=== PATIENT | female | born 1995 | race Caucasian/White ===

== ENCOUNTER 2023-04-15 13:02 | Outpatient (CLI) | payer MEDICAID, SELFPAY ==
--- NOTE | 2023-04-15 15:00 | W.PM.LAC.MC ---
Consult Note - Mom Date of Visit Date of visit: 04/15/23 [facility] consultant: Ivanna Flores Visit Code: Visit Patient's Information Phone number: [phone] : 1 Para: 1 Delivery Information Delivery type: Primary C/S; Labored (FTP) Weeks Gestation: 40.2 Gestational Age: AGA Weight: 3.374 kg Discharge Weight: 3.175 kg Baby's Information Baby's Age at Visit: 8 days Baby's Provider or Clinic: Dr. Singletary Jaundice: No Reason for Consult Reason for Consult: difficulty latching Past Experience Past Experience: No Current Frequency of Day Feedings: about every 2 hours Frequency of Night Feedings: about every 4 hours Both Breasts: Yes (mom attempts) Pumping Pumping: Yes (with every other feeding) Quantity Pumped: 2 - 5 oz/side at each attempt Supplementing EMB Supplement: Yes (baby is given about 2 oz of pumped milk every 2 - 4 hours) Formula Supplement: No Baby Elimination Number of Wet Diapers a Day: every feeding Number of BM a Day: every feeding Onsite Pre-Feed weight: 3.484 kg Assessments/Interventions Assessments/Interventions: Met with mom and this now 8 day old ex- term AGA baby. Mom received her care and delivered with Mary Anne Foster. She reports no difficulty during , but needed a C/S for decreased heart tones with contractions during labor. She also had a significant blood loss and needed two units PRBC's after delivery. She reports having difficulty nursing baby from the beginning, both with and without a nipple shield. Since D/C she's tried to nurse but states she ends up screaming at my breast so I give her a bottle. She reports baby has never had formula and is now taking about 2 oz EBM every 2 - 4 hours. Mom has been able to pump 2 - 5 oz/side and was pumping with almost every feeding but has now started pumping with every other feeding or as I need to. Breasts are large but WNL- symmetrical with rounded lower quadrants, intramammary distance < 1.5 inches. Nipples are large but everted and they don't flatten or retract on compression. There was a small fissure on each nipple but mom reported they were from nipple piercings and aren't painful. Baby has gained 56 grams/day since her last visit with PCP on 04/11/23 and is now 110 grams (3.6 oz) above BW at 8 DOL. Mom denies any caput/cephalohematoma at delivery and also reports baby has equal ROM when turning her head and moving her extremities. Her palate is WNL and there are no signs of an upper lip tie. She has a strong suck on a finger and the tongue comes over the lower gumline, but not by much. The tongue has good lateral movement. Per mom, baby's lower frenulum was clipped before D/C and appears to be healing well. Mom attempted to latch baby in the football hold to her left side and baby was almost immediately frustrated. No improvement with verbal coaching to hold her breast in a C shape or aim her nipple for baby's nose. Baby didn't seem to sense the nipple in her mouth, or if she did take a few suckles, she pushed off right afterwards and wouldn't maintain the latch. There was no improvement with a nipple shield, or after giving baby about 15 ml by bottle and then transferring her back to breast. After a 10 - 15 minute attempt, mom tried the right side with the same result. Mom was measured and a flange size suggested. Also showed her an exercise and a stretch she can try with baby to see if that helps her learn to extend her tongue a little further past the gum line. Plan: 1. Suggested mom try once/day. She could try about 30 minutes before a time when baby would usually eat, or when she's a little sleepy. Could also try to bait and switch her with a bottle. Mom was given a 24mm nipple shield to use as well. 2. Continue to supplement baby ALD, or at least every 3 - 4 hours. Handout given on average amounts babies take by bottle during their first month of life. 3. Suggested mom pump at least 6 times/24 hours for now. Reviewed the importance of keeping a good supply so there's a reward for baby when mom puts her to breast. 4. Suggested she try the exercise and stretch with daytime diaper changes. 5. Encouraged extra skin to skin time outside of feedings. 6. Also reviewed storage milk guidelines and handout given. 7. Will f/u with mom by phone on 04/29/23 and fax note to PCP.
== END 2023-04-15 13:03 | disposition home or self-care (01) ==
PROVIDERS: PCP Physician Assistant; Visit Provider Physician Assistant
DX: Z39.1 Encounter for care and examination of lactating mother (principal)
CPT/HCPCS: G0463

== ENCOUNTER 2024-12-25 05:31 | Inpatient (IN) | payer MEDICAID, SELFPAY ==
[2024-12-25] VITALS (54 sets, daily range): BP systolic 116–138; BP diastolic 70–88; PULSE 73–95; RESP 16–20; TEMP 36.4–36.8; O2SAT 95–100; BMI 37.1
[2024-12-25] MEDS: LACTATED RINGERS 1000 ML 1,000 ML 955 ML IV (05:50)
[2024-12-25 06:07] LABS: Hematocrit* 36.4 % (33.0-51.0); Hemoglobin* 12.1 gm/dL (12.0-16.0); Immature Granulocytes Abs Auto 0.20 K/uL (0.00-0.30); Immature Granulocytes Pct Auto 1.3 %; Lymphocytes Absolute Auto 2.40 K/uL (0.90-2.90); Mean Corpuscular HGB Conc 33 gm/dL (32-36); Mean Corpuscular Hemoglobin 29 pg (26-34); Mean Corpuscular Volume 88 fL (80-100); RDW Coefficient of Variation % 13.0 % (11.5-15.5); Red Blood Count* 4.13 m/uL (4.00-5.20); White Blood Count* 11.98 K/uL (4.50-11.00)
[2024-12-25 06:08] LABS: Slide Review Reflex No
[2024-12-25] MEDS: LACTATED RINGERS 1000 ML 1,000 ML 125 ML IV ×2 (07:01→11:15)
--- NOTE | 2024-12-25 07:30 | W.PM.H&PU ---
History & Physical Update History & Physical Update H&P Reviewed and patient assessed: No changes noted H&P Updates: Ms. Bocanegra is seen in pre-op prior to planned repeat and bilateral salpingectomy. No interval change to her health history or questions today. We again reviewed the risks, benefits and alternatives to the planned procedure. Written consent was re-signed. Patient again affirmed her desire to be surgically sterilized. She notes she would only decide not to do this if there were significant concerns at time of , reassured her of reactive NST this morning. Certainly, I will again verbally affirm her desire to proceed before starting salpingectomy. Type and screen on file, cross-matched for 2 units, [address] given history of hemorrhage. Plan perioperative Ancef. Post-procedure restrictions and expectations reviewed. Pre-op labs reviewed and are within normal limits.
--- NOTE | 2024-12-25 10:02 | P.OBPRC_ITS ---
Procedure Date of procedure: 12/25/24 Pre-op diagnosis: History of , history of PPH, unwanted fertility, tobacco use disorder, ADHD Post-op diagnosis: same Procedure Done: Global Will [facility] bill your pro fee for this procedure?: Yes Blood Loss Measurement Type: QBL (611) Bakri Used: No IV fluids (mL): 1,000 Urine Output (mL): 100 Urine Output Comment: Madelaine yellow, clear Surgeon: Katlyn Melton MD Anesthesia Type: Spinal Findings: Moderate adhesion between rectus abdominis fascia and musculature Dense adhesions between the anterior uterus and bladder reflection to the anterior abdominal wall Liveborn female Unremarkable uterus (aside from adhesions), bilateral fallopian tubes and ovaries Procedure Name: Repeat delivery, bilateral salpingectomy, lysis of adhesions Procedure Description: Patient was taken to the operating room with IV running. She received Ancef in preoperative prophylaxis after an unremarkable test dose. Spinal anesthesia was administered. Cole catheter was inserted. She was prepped and draped in the usual sterile fashion. Anesthesia was tested and found to be adequate. A low-transverse skin incision was made over her prior scar with a scalpel and carried through to the underlying layer of fascia with the scalpel. The subcutaneous fat was dissected off the underlying fascia with Bovie and blunt dissection. The fascia was nicked in the midline with a scalpel, and this incision was extended laterally with scissors. Adhesive disease was noted between rectus abdominis muscles, fascia and peritoneum. Adhesions were taken down with combination of sharp and blunt dissection to allow access to the peritoneum. The rectus muscles were in the midline. Peritoneum was identified and entered bluntly. Digital exam confirmed dense band-like adhesions between the anterior surface of the uterus and anterior abdominal wall (left>right), the superior aspect of peritoneal entry site was free of adhesions. The peritoneal opening was carefully extended superiorly and laterally. The uterus was digitally reflected inferiorly, where I could identify the right aspect of the vesicouterine reflection. A bladder flap was created using a combination of sharp and blunt dissection, where developing this normal plane working right to left dropped the bladder inferiorly and better isolated the dense bands of scar tissue between the uterus and anterior abdominal wall and isolate a safe plane for dissection. The dense scar bands were taken down sharply. Peritoneal entry was widened bluntly with lateral traction. Holland O retractor was inserted and tightened down, providing excellent visualization of the lower uterine segment. The bladder flap was further developed to drop the bladder well below planned site of hysterotomy. Low-transverse uterine incision was made with a scalpel. Incision was widened bluntly. The 's head was grasped through the hysterotomy and delivered with the help of fundal pressure. The remainder of the body delivered without incident. Cord was clamped and cut after 30 seconds. was handed off to attending nurses. details: - Liveborn female fetus at 1130 - weight 3410g - APGARs were 9 and 9 at 1 and 5 minutes respectively The placenta was delivered with gentle traction on the cord. The uterus was cleaned of all clots and debris with the dry lap pad. The hysterotomy was reapproximated with 0 Vicryl in a running, locked fashion. A figure of eight with 0 vicryl was applied at the left hysterotomy margin to reinforce hemostasis. A second layer of the same suture was used in imbricating fashion to obtain hemostasis. Serosal defects from abdominal entry were noted and hemostasis was achieved with electrocautery. Excellent hemostasis was noted throughout. Attention was then turned to the planned bilateral salpingectomy. The adnexa were examined and noted to be normal in appearance. The right fallopian tube was identified and elevated with Babcocks, then sequentially ligated and transected from the mesosalpinx using the Ligasure cautery device. We proceeded from the fimbriated end, lateral to medial, and the tube was amputated at the right uterine cornua. Specimen was removed from the field. Excellent hemostasis noted. The same procedure was repeated on the patient's left side, and the left fallopian tube was also amputated at the cornua and removed from the patient's abdomen. Both fallopian tubes were sent for pathologic evaluation. Uterus was reintroduced into the abdominal cavity. The cul-de-sac and gutters were cleansed with dampened laparotomy sponge, removing any further clots and debris. Hysterotomy and salpingectomy sites were inspected and noted to be hemostatic. The Holland O retractor was removed. Given challenging dissection and abdominal entry, we proceeded to backfill the bladder with 250cc sterile formula which confirmed it to be free of injury. The hysterotomy was reexamined and found to be hemostatic. The rectus muscles were elevated, examined and made hemostatic with electrocautery as needed. The fascia was reapproximated with 0 PDS in a running fashion. Subcutaneous fat was irrigated and Bovie used on oozing vessels. The subcutaneous fat was reapproximated with 2 0 Vicryl suture. The skin was closed with a subcuticular stitch of 4-0 vicryl. Surgical glue was applied above this. Patient tolerated procedure well was taken to recovery area in stable condition. Pathology: specimen obtained, sent to pathology Surgery Debrief Performed: Yes Condition: stable Disposition: floor
--- NOTE | 2024-12-25 12:44 | P.ANES_ITS ---
Anesthesia Charges Start Date/Time Anesthesia Start Date: 12/25/24 Anesthesia Start Time: 10:41 Stop Date/Time Anesthesia Stop Date: 12/25/24 Anesthesia Stop Time: 12:45 Coding CPT Codes CPT Codes: ANESTH CS DELIVERY - 47700 ([id number]) P2 - PATIENT W/MILD SYST DISEASE, QZ - EARLY CHILDHOOD SPECIALIST SVC W/O POLICE SUPERINTENDENT BY
--- NOTE | 2024-12-25 12:44 | W.ANESCHARGE ---
Anesthesia Charges Start Date/Time Anesthesia Start Date: 12/25/24 Anesthesia Start Time: 10:41 Stop Date/Time Anesthesia Stop Date: 12/25/24 Anesthesia Stop Time: 12:45 Coding CPT Codes CPT Codes: ANESTH CS DELIVERY - 45420 ([id number]) P2 - PATIENT W/MILD SYST DISEASE, QZ - FISH AGENT SVC W/O OPERATIONS MANAGEMENT TRAINEE BY
--- NOTE | 2024-12-25 12:45 | P.NB_ITS ---
Nerve Block Nerve Block Time Seen by Provider: 12:20 Date Seen: 12/25/24 Type of block requested by surgeon for post-operative analgesia: TAP Side: bilateral Time out performed: Yes Verification of patient name: Yes Verification of date of : Yes Site marking: site marked Name of person performing procedure: Leila Sklulogansouravede Continuous monitoring Was continuous monitoring of O2 sat, B/P, license registration examiner, recorded every 15 minutes?: Yes Procedure Checklist: sterile prep, needles and gloves Ultrasound guided. Images saved: Yes Medications given in 5ml increments after negative aspiration: Marcaine %: 0.25 mL: 30 and Exparel mL: 10 Patient tolerated procedure well: Yes Block Charges Block Charge (with Pro Fee): TAP Bilateral Use of Ultrasound Machine for Block: Yes- US Guidance/pain block
[2024-12-25] MEDS: IBUPROFEN 600 MG TABLET PO (14:21)
[2024-12-25] MEDS: ACETAMINOPHEN 500 MG TABLET 1000 MG PO ×2 (14:41→23:58)
[2024-12-26 01:36] VITALS: BP 114/73; PULSE 80; RESP 16; TEMP 36.7; O2SAT 97
[2024-12-26 06:25] VITALS: BP 121/67; PULSE 80; RESP 16; TEMP 36.6; O2SAT 97
[2024-12-26 07:14] LABS: Hemoglobin* 10.5 gm/dL (12.0-16.0)
[2024-12-26] MEDS: ACETAMINOPHEN 500 MG TABLET 1000 MG PO ×2 (08:52→19:06)
[2024-12-26] MEDS: DOCUSATE SODIUM 100 MG CAPSULE PO (08:52)
[2024-12-26] MEDS: SIMETHICONE 80 MG TAB.CHEW PO (08:52)
[2024-12-26 09:01] VITALS: BP 117/78; PULSE 73; RESP 16; TEMP 36.3; O2SAT 99
--- NOTE | 2024-12-26 09:37 | P.OBPN_ITS ---
OB - PN:Subj Subjective Date Seen: 12/26/24 Patient comments OB post-: pain well controlled, tolerating diet and flatus present infant status: feeding status: exclusively Narrative: Radha is a 29 y.o. who was admitted to [facility] for repeat delivery. ?She had an uncomplicated .?The patient feels well. ?The pain is well controlled with current medications. ?She has no new complaints. ?She is breast feeding and reports things are going well.? the patient has done well.? Vitals have been stable.? She has remained afebrile.? Has a good gagandeep etite, is tolerating a general diet. ?She is voiding without difficulty.? She is passing gas and has not had a bowel movement.? She is ambulating and denies any dizziness.? Has Small amount of rubra lochia. OB - PN: Obj Exam Physical Exam: Vital signs: Temp Pulse Resp BP Pulse Ox O2 Del Method 97.4 F L 73 16 117/78 99 Room Air 12/26/24 09:01 12/26/24 09:01 12/26/24 09:01 12/26/24 09:01 12/26/24 09:01 12/26/24 09:01 Narrative: GENERAL APPEARANCE:? normal affect, alert, no distress MOOD:? appropriate CHEST:? clear to auscultation HEART:? regular rate and rhythm ABDOMEN:? soft, non-tender the uterine fundus is At Umbilicus, Midline and is appropriate for the stage of recovery. EXTREMITIES:? normal and trace edema Incision: Covered by dressing that is dry and clean, no surrounding erythem anoted. OB - PN: Obj Data Labs Labs: Laboratory Results - last 24 hr 12/26/24 06:54 Hgb 10.5 L OB - PN: A/P Delivery Assessment and Plan (1) Status post repeat low transverse section: Status: Acute Assessment and Plan: Meeting postop milestones. Adequate hemoglobin after surgery. Plan day: 1 Plan: routine care Comments: Doing well, consider D/H tomorrow if continues to be stable.
[2024-12-26] MEDS: LANOLIN CREAM 1 APPLIC TOPICAL (11:00)
[2024-12-26 13:17] VITALS: BP 116/74; PULSE 75; RESP 16; TEMP 36.6; O2SAT 96
[2024-12-26 22:02] VITALS: BP 118/75; PULSE 73; RESP 16; TEMP 36.5; O2SAT 96
[2024-12-27] MEDS: IBUPROFEN 600 MG TABLET PO ×2 (05:08→12:08)
[2024-12-27 06:10] VITALS: BP 119/67; PULSE 76; RESP 16; TEMP 36.7; O2SAT 98
[2024-12-27] MEDS: DOCUSATE SODIUM 100 MG CAPSULE PO (09:22)
[2024-12-27] MEDS: ACETAMINOPHEN 500 MG TABLET 1000 MG PO (09:22)
--- NOTE | 2024-12-27 10:16 | P.DS_ITS ---
DS: Providers Provider Date Seen: 12/27/24 Date of admission: 12/25/24 05:31 Primary care physician: Raquel Drake MD Admitting Clinician: Elaine Melton MD Attending Physician on discharge: Elaine Melton MD Date of Discharge: 12/27/24 DS: Diagnosis Discharge Diagnosis (1) Status post repeat low transverse section: Status: Acute (2) Unwanted fertility: Status: Acute Exam Narrative: Exam Narrative: Physical exam: General: No acute distress Psych: Alert and oriented x4, full affect HEENT: Normocephalic, atraumatic Heart: Regular rate and rhythm, no murmur rub or gallop Lungs: Clear to auscultation bilaterally Abdomen: Normoactive bowel sounds, soft, no tenderness, rebound, or guarding, no masses, no hepatosplenomegaly, no hernias Incision(s): Appropriately tender to palpation. Clean, dry, and intact. No erythema, induration, or abnormal discharge/breakdown Skin: No lesions or rashes Lower extremities: Trace bilateral lower extremity edema, no erythema Pelvic exam: Scant lochia on pad Const: Vital Signs, click to edit/add: Vital Signs - 24 hr 12/26/24 13:17 12/26/24 22:02 12/27/24 06:10 Temperature 97.8 F 97.7 F 98.1 F Pulse Rate [Pulse Oximeter] 75 73 76 Respiratory Rate 16 16 16 Blood Pressure [Le ft Arm] 116/74 118/75 119/67 Pulse Oximetry 96 96 98 Oxygen Delivery Me thod Room Air Room Air Room Air OB - DS: Summary Hospital Course Hospital Course: The patient is a 29 year old who was admitted to the Center on 12/25/24 for scheduled repeat delivery at 39.1 weeks. She had an uncomplicated delivery. She delivered a viable female . She is . the patient has done well. Overnight patient had no complaints. Her pain is well controlled on oral pain medications. She is tolerating a regular diet. She has passed flatus. She is ambulating without difficulty. Lochia is scant. She is urinating without wesley. Patient denies chest pain, SOB, n/v, headache, RUQ pain, vision changes, dizziness. Peripartum Data Procedures: Procedures Operation Date: 12/25/24 07:15 Actual Procedure Side Surgeon p Repeat Section and Bilateral Salpingectomy Not Applicable Elaine Melton MD Gender: Female Time Spent with Patient Time attestation: Total time spent providing and/or coordinating discharge services: Discharge Plan Discharge Disposition: Home, Self-Care Date of Admission: 12/25/24 05:31 Attending Provider on Discharge: Alisha Almaraz Primary Care Provider: Raquel Drake Condition: Stable Anticipated Discharge Date/Time: 12/27/24 10:11 Discharge Medications: New acetaminophen 500 mg Tablet 1,000 mg PO Q6H PRN (Reason: Pain) 30 Days Qty: 60 0RF docusate sodium 100 mg Capsule 100 mg PO DAILY 30 Days Qty: 30 0RF ibuprofen 600 mg Tablet 600 mg PO Q6H PRN (Reason: Pain) 30 Days Qty: 60 0RF Lanolin (HPA) 100 % Cream 1 applic topical Q1H PRNQty: 21 0RF oxycodone 5 mg Tablet 5 mg PO Q6H PRN (Reason: Pain) 14 Days Qty: 15 0RF Continued dextroamphetamine-amphetamine [Adderall] 10 mg tablet 10 mg PO QDAY PRN DHA 200 mg capsule PO Discharge Orders: Discharge Order (Routine); Ordered 12/27/24 Ordered By: Alisha Almaraz Patient Education: (DC) Follow Up Appointments: Raquel Drake MD [Primary Care Provider, Family Practice] Forms: [employer] Info Instructions Discharge Comments: - Follow up in 5-7 days for incision check in clinic - Follow Up: follow-up at 2 weeks and 6 weeks in clinic
[2024-12-27 10:50] VITALS: BP 136/82; PULSE 81; RESP 16; TEMP 36.3; O2SAT 96
== END 2024-12-27 12:40 | disposition home or self-care (01) | DRG 785 ==
PROVIDERS: Admitting Provider Obstetrics & Gynecology; PCP Family Medicine; Visit Provider Obstetrics & Gynecology
PROC: 10D00Z1 Extraction of Products of Conception, Low, Open Approach (ICD-10-PCS; CPT 59514; principal; 2024-12-25 09:30)
DX: O34.211 Maternal care for low transverse scar from previous cesarean delivery (principal); Z30.2 Encounter for sterilization; G89.18 Other acute postprocedural pain; O99.62 Diseases of the digestive system complicating childbirth; K66.0 Peritoneal adhesions (postprocedural) (postinfection); F90.9 Attention-deficit hyperactivity disorder, unspecified type; Z79.899 Other long term (current) drug therapy; Z37.0 Single live birth; Z3A.39 39 weeks gestation of pregnancy
CPT/HCPCS: 01961; 36415; 64488; 76942; 85018; 85025; 86592; 86850; 86900; 86901; 86922; 88302; 88307; A4314; A9270; J0665; J0666; J0690; J1100; J1885; J2371; J2405; J2590; J3010; J7120

== ENCOUNTER 2025-01-11 14:11 | Inpatient (IN) | payer MEDICAID, SELFPAY ==
[2025-01-11] VITALS (12 sets, daily range): BP systolic 104–163; BP diastolic 62–111; PULSE 66–97; RESP 16–20; TEMP 36.4–37; O2SAT 95–98; BMI 34.9
--- OUTSIDE RECORDS SUMMARY | 2025-01-11 14:15 | XMS_ITS | Clinical Summary ---
Author Organization [facility] Address [address] [place] [id number] Care Team Providers Care Dock Coordinator Name Role Phone Ivanna Singletary Primary Care Provider [phone] Allergies Active Allergy Reactions Criticality Noted Date Comments Amoxicillin Rash Unknown 09/18/2006 Medications albuterol HFA (PRO-AIR; VENTOLIN; PROVENTIL) 90 mcg/actuation inhalerIndication s:Wheezing Inhale 1-2 Puffs by mouth every 4 hours if needed for Shortness Of Breath or Wheezing. 18 g 2 11/29/19 22 Active acetaminophen (TYLENOL EXTRA STRGTH) 500 mg tabletIndications :S/P section Take 2 Tablets (1,000 mg) by mouth every 6 hours if needed for Pain. Max acetaminophen dose: 4000mg in 24 hrs. 60 Tablet 04/10/19 24 Active no115/iron/folic acid ( 19 ORAL) Take by mouth. Activ e Breast Pump PurchaseIndicatio ns:Care and examination of lactating mother (HC) Electric breast pump for home use. Gestational age at delivery: 39 weeks. Reason for need: return to work. Length of need: 99 months (lifetime use) 1 Each 09/11/19 25 Active cholecalciferol (Vitamin D) 1,000 unit capsule Take 4,000 units by mouth once daily. Active NIFEdipine (PROCARDIA XL) 30 mg extended-release tabletIndications : hypertension (HC) Take 1 Tablet (30 mg) by mouth once daily before a meal. 30 Tablet 1 01/12/20 Active dextroamphetamine -amphetamine (AdderalL) 20 mg tabletIndications :Attention deficit hyperactivity disorder (ADHD), predominantly inattentive type Take 1 Tablet (20 mg) by mouth two times daily. 60 Tablet 03/24/19 025 Discontin ued(*Mary ent states no longer taking) MULTIVITAMIN 12 IV Inject intravenous. 025 Discontin ued(*Mary ent states no longer taking) Active Problems Problem Noted Date Diagnosed Date 04/29/2024 Overview (04/29/2024): Estimated Date of Delivery: 12/18/24 Patient's last menstrual period was 03/13/2024 (exact date). GBS: 28wk labs: Last Tdap: 2022 Last Flu vaccine: 2022 OB Labs: Allergies Allergen Reactions Amoxicillin Rash OB History Para Term AB Living 5 1 1 0 2 1 SAB IAB Ectopic Multiple Live Births 0 0 0 0 1 # Outcome Date GA Lbr Conrad/2nd Weight Sex Type Anes PTL Lv 5 Current 4 Term 04/07/23 40w2d 3.38 kg (7 lb 7.2 oz) F SPINAL, EPIDURAL, INTRATHECAL ERICKA Complications: Intolerance Name: Bg Radha Bocanegra Apgar1: 9 Apgar5: 9 3 AB 05/06/20 2 1 AB Past Medical History: . Date Abnormal Pap smear of cervix Anemia 04/07/2023 Blood loss with delivery of baby in 03/2023 Attention deficit disorder with hyperactivity(314.01) 2001 Closed fracture of unspecified part of femur left GBS (group B Streptococcus carrier), +RV culture, currently 03/2023 History of blood transfusion 04/07/2023 Blood loss with delivery of baby 04/07/23 Infertility, female 03/2020 Letrazole taken for last Migraine headache Mild major depression, single episode 10/18/2008 Polysubstance abuse (HC) 08/22/2009 Scoliosis 09/05/2010 Smoking Varicella Had chicken pox as a child Past Surgical History: . Laterality Date SECTION 04/07/2023 ESOPHAGOGASTRODUODENOSCOPY 11/23/2014 FEMUR FRACTURE TREATMENT Left 2000 TONSIL AND ADENOIDECTOMY 1995 Problems (from 04/27/24 to present) No problems associated with this episode. Marleen Galicia, RN Student ....04/29/2024 11:50 AM 40 weeks gestation of 04/09/2023 Controlled substance agreement signed 03/18/2018 Attention deficit hyperactiv ity disorder (ADHD), predominantly inattentive type 11/19/2017 Generalized anxiety disorder 02/24/2016 Allergic rhinitis due to allergen 09/06/2014 Gastritis 10/20/2013 Scoliosis 09/05/2010 Mild major depression, single episode 10/18/2008 Resolved Problems Problem Noted Date Diagnosed Date Resolved Date Allergic rhinitis 10/20/2013 09/06/2014 Sinus headache 10/20/2013 09/03/2014 Contraception 09/05/2010 05/16/2020 Polysubstance abuse 08/22/2009 05/17/19 21 Overview (08/22/2009): Alcohol and Marijuana ADHD (attention deficit hype ractivity disorder) 01/20/2009 11/19/2017 Encounters Date Type Department Care Team Description 01/11/2025 12:45 PM 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 ) 01/11/2025 Travel 12/26/[address] [facility] [phone] Elaine Melton MD 12/26/[address] [facility] [phone] Elaine Melton MD 12/17/2024 10:05 AM CDT OB Encounter [facility] [address] [place] [address] Raquel Drake MD Care (38wk/Cramping) 12/17/2024 Travel 12/11/2024 10:30 AM CDT OB Encounter [facility] [address] [facility] [place] [address] Raquel Drake MD Care (37+1) 12/11/2024 Travel 12/04/2024 10:05 AM CDT OB Encounter [facility] [address] [facility] [place] [address] Raquel Drake MD Care (36w 1d/); Immunization/Inject ion 12/04/2024 Travel 11/20/2024 10:30 AM CDT OB Encounter [facility] [address] [facility] [place] [place] [address] Raquel Drake MD Care (34w 1d/) 11/20/2024 9:45 AM CDT Ancillary Procedure [facility] [address] [place] [address] 11/20/2024 Travel 11/06/2024 10:55 AM CDT OB Encounter [facility] [address] [facility] [place] [address] Raquel Drake MD Care (32w 1d/More Woodson Barton, some that stop her in her tracks and had to breath through) 11/06/2024 Travel 10/23/2024 11:45 AM CDT OB Encounter [facility] [address] [place] [address] Raquel Drake MD Care (30wk 1d); Back Pain 10/23/2024 Travel from Last 3 Months Immunizations Immunization Administration Dates Next Due DT (Age < 7 years) 11/05/2003 DTP 1998,1993,1993 DTP-HIB 10/10/1994,01/09/1994 DTaP 02/25/2007 HPV 9 (Gardasil 9) 09/09/2007,05/07/2007, 007 Hepatitis A (Peds) 01/09/1994,1993, 994 Human Papilloma Virus Vaccine 09/09/2007, 008,02/25/2007 INFLUENZA, IIV3 PF (AGE >= 6 MO) 12/04/2024 Influenza Virus, Unspecified 12/21/2015,01/29/20 15 Influenza, IIV3 (Age >=3 years) 01/28/20 12,01/17/2010,03/19/2002,02/12 Influenza, IIV4 01/15/2023,,03/05/2019,11/19,12/09/2015 MMR 11/05/2003,10/10/1994,1993 Meningococcal Vaccine (Menactra) 10/26/2008 Oral Polio Vaccine 1998, 4,1993,08/11 RSV, Bivalent Vaccine Recons tituted (Abrysvo 120MCG/0.5mL) 12/04/2024 Td (Age >=7 Years) 11/05/2003 Tdap 10/09/2024, 3,12/21/2015,12/08,02/25/2007 Tuberculin (PPD) 04/15/2012 Family History Medical History Relation Name Comments Good Health Daughter Cancer Father lung CA Drug Abuse Father Recovered for 3 0+ years Thyroid Disease Father hyperthyroid COPD Maternal Grandfather Coronary artery disease Maternal Grandmother Lung cancer Maternal Uncle other Maternal Uncle Lung transpla nt Alcoholism Mother Sober since 201 2 Depression Mother Thyroid Disease Mother hypothyroid Coronary artery disease Paternal Grandfather ADD / ADHD Sister Depression Sister Fibromyalgia Sister Relation Name Status Comments Daughter Alive Father Alive Maternal Aunt Maternal Grandfather Maternal Grandmother Alive Maternal Uncle Alive Mother Alive Paternal Grandfather Paternal Grandmother Sister Alive Social History Tobacco Use Types Packs/Day Years Used Date Smoking Tobacco: Some Days Cigarettes 0.3 9.6 Started: 06/14/2022 Smokeless Tobacco: Never Tobacco Cessation:Ready to Q uit: No; Counseling Given: Not Answered Comments:Smokes an average of 7 cigarettes a week (when she works) Alcohol Use Standard Drinks/Week Comments Not Currently 0 (1 standard drink = 0.6 oz pur e alcohol) PHQ-2 Answer Date Recorded PHQ-2 TOTAL SCORE 0 06/18/2023 Social Connections Answer Date Recorded Do you often feel lonely or isolated from those around you? 0 04/29/2024 Financial Resource Strain Answer Date R ecorded Difficulty of Paying Living Expenses 3 04/29/2024 Difficulty of Paying Living Expenses Not on file 04/29/2024 Food Insecurity Answer Date Recorded Do you worry your food will run out before you are able to buy more? 1 04/29/2024 Transportation Needs Answer Date Record ed Does lack of transportation keep you from medica l appointments? 1 04/29/2024 Does lack of transportation keep you from work, meetings or getting things that you need? 1 04/29/2024 Housing Stability Answer Date Recorded What is your housing situation today? 1 04/29/2024 Interpersonal Safety Answer Date Record ed Are you being hit, kicked, p ushed or yelled at (see row info)? No 04/06/2023 Interpersonal Safety Abuse 12 - 18 Not on file 04/06/2023 Interpersonal Safety Ambulatory Vulnerability No t on file 04/06/2023 Utilities Answer Date Recorded Do you have trouble paying f or utilities (for example, heat, electricity, water, phone)? 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 Not on file Not on file Not on file Obstetrics History Para Term AB IAB SAB Ectopic Multiple Livin g Live Births 5 2 2 0 2 0 0 0 0 2 2 Date Outcome GA Total Labor Labor/2nd/3rd Weight Sex Type Anes PTL Ericka A1 A5 Name Clin AB 021 AB 024 Term 40w 2d 0h 01m 0h 01m 3.38 kg (7 lb 7.2 oz) F C-Sec tion Spina l,Epi dural ,Intr athec al Livin g 9 9 Santi Amos MBBS Complications: Intolera nce Delivery Location:Hospital ( [facility] 025 Term 39w 1d F C-Sec tion Livin g 9 9 Esther Summary Episode Dates Number of Fetuses Estimated Date of Delivery 04/27/2024 - Present (01/11/2025) 12/31/2024 (set by Alessandro Drake MD on 06/15/2024 based on Ultrasound on 05/18/2024) Dating Summary Based On ANTOINE GA Diff Last Menstrual Period on 03/13/2024 (Exact Date) 12/18/2024 +1w6d Ultrasound on 05/18/2024 12/31/2024 Working GA:7w4d Vitals Pregravid Weight Height TWG (As of 01/11/2025) Pregrav id BMI 1.7 m (5' 6.93) Date GA Fund Present FHR Mvmt BP Weight Edema Alb Glu Ket Dil/ Eff/Sta 5 5w5d Inpatient data not displayed here. See encounter summary. Notes Progress Notes - OB Encounte r - 12/17/2024 - GA:38w0d 12/17/2024 - 38w0d - Raquel Drake MD SUBJECTIVE: Radha Bocanegra is a 29 y.o. female at 38 weeks. She has been struggling with period like cramps for the last 2 days. Some are very faint, others she has to breathe through. This is on top of sleeping poorly because of sleep regression with her daughter. See visit comments. OBJECTIVE: see OB vitals flow sheet ASSESSMENT : 38 weeks gestation with no complications PLAN: Labor signs and symptoms reviewed with patient including painful regular contractions or leaking fluid. scheduled 12/25 if she doesn't go into labor sooner. Raquel Drake MD .................... 12/17/2024 10:26 AM Progress Notes - OB Encounte r - 12/11/2024 - GA:37w1d 12/11/2024 - 37w1d - Raquel Drake MD SUBJECTIVE: Radha Bocanegra is a 29 y.o. female at 37+1 weeks. No concerns. The URI she had over trace weekend is much better. See visit comments. OBJECTIVE: see OB vitals flow sheet ASSESSMENT : 37+1 weeks gestation with no complications Prior , planned repeat this as well. PLAN: Labor signs and symptoms reviewed with patient including painful regular contractions or leaking fluid. RTC 1 weeks. Raquel Drake MD .................... 12/11/2024 10:44 AM Progress Notes - OB Encounte r - 12/04/2024 - GA:36w1d 12/04/2024 - 36w1d - Raquel Drake MD Images from the original note were not included. [facility] Preoperative Consultation Radha Bocanegra : 1995 Gender: female Date of Encounter: 12/04/2024 Radha Bocanegra is a 29 y.o. female (1995) who presents for preop evaluation undergoing repeat low transverse and bilateral tubal ligation. Date of Surgery: 12/25/2024 Surgical Specialty: PROVINCE ARCHIVIST Elaine Melton MD Hospital/Surgical Facility: [facility] Fax number: Surgery type: inpatient Primary Physician: Ivanna Singletary History of Present Illness Radha Bocanegra is a 29 y.o. at 36+1. Prior delivered via c- section for intolerance of labor. This has been uncomplicated. Patient has continued adderall through , but at lowest dose and only on work days. Baby has been less active this week. No contractions, no LOF. Otherwise is feeling well. History of Present Illness Review of Systems A comprehensive review of systems was negative except for items noted in HPI. Patient Active Problem List Diagnosis Code Mild major depression, single episode F32.0 Scoliosis M41.9 Gastritis K29.70 Allergic rhinitis due to allergen J30.9 Generalized anxiety disorder F41.1 Attention deficit hyperactivity disorder (ADHD), predominantly inattentive type F90.0 Controlled substance agreement signed Z79.899 40 weeks gestation of (HC) Z3A.40 (HC) Z34.90 Current Outpatient Medications Medication Sig acetaminophen (TYLENOL EXTRA STRGTH) 500 mg tablet Take 2 Tablets (1,000 mg) by mouth every 6 hours if needed for Pain. Max acetaminophen dose: 4000mg in 24 hrs. albuterol HFA (PRO-AIR; VENTOLIN; PROVENTIL) 90 mcg/actuation inhaler Inhale 1-2 Puffs by mouth every 4 hours if needed for Shortness Of Breath or Wheezing. Breast Pump Purchase Electric breast pump for home use. Gestational age at delivery: 39 weeks. Reason for need: return to work. Length of need: 99 months (lifetime use) dextroamphetamine-amphetamine (AdderalL) 20 mg tablet Take 1 Tablet (20 mg) by mouth two times daily. MULTIVITAMIN 12 IV Inject intravenous. no115/iron/folic acid ( 19 ORAL) Take by mouth. No current facility-administered medications for this visit. Medications have been reviewed by me and are current to the best of my knowledge and ability. Allergies Allergen Reactions Amoxicillin Rash Past Surgical History[1] Social History Tobacco Use Smoking status: Some Days Current packs/day: 0.25 Average packs/day: 0.2 packs/day for 9.5 years (2.4 ttl pk-yrs) Types: Cigarettes Start date: 06/14/2022 Smokeless tobacco: Never Tobacco comments: Smokes an average of 7 cigarettes a week (when she works) Vaping Use Vaping status: Never Used Substance Use Topics Alcohol use: Not Currently Drug use: No Family History Problem Relation Age of Onset Alcoholism Mother Sober since 2011 Depression Mother Thyroid Disease Mother hypothyroid Drug Abuse Father Recovered for 30+ years Cancer Father 53 lung CA Thyroid Disease Father hyperthyroid ADD / ADHD Sister Depression Sister Fibromyalgia Sister Good Health Daughter Other (other) Maternal Uncle Lung transplant Lung cancer Maternal Uncle Coronary artery disease Maternal Grandmother COPD Maternal Grandfather Coronary artery disease Paternal Grandfather Results PAST DIFFICULTY WITH ANESTHESIA: Yes, personal hx low blood pressure with epidural. No family history of anesthesia problems. Physical Exam BP 118/82 (Cuff Site: Right Arm, Position: Sitting, Cuff Size: Adult Large) Pulse 84 Wt 102.2 kg (225 lb 3.2 oz) LMP 03/13/2024 (Exact Date) SpO2 99% BMI 35.35 kg/m Body mass index is 35.35 kg/m . Physical Exam General Appearance: Pleasant, alert, appropriate appearance for age. No acute distress Eye Exam: Normal external eye, conjunctiva, lids, cornea. DAVIAN. OroPharynx Exam: Dental hygiene adequate. Normal buccal mucosa. Normal pharynx. Neck Exam: Supple, no masses or nodes. Chest/Respiratory Exam: Normal chest wall and respirations. Clear to auscultation. Cardiovascular Exam: Regular rate and rhythm. S1, S2, no murmur, click, gallop, or rubs. Gastrointestinal Exam: Gravid, non tender. Neurologic Exam: Nonfocal; symmetric DTRs, normal gross motor movement, tone, and coordination. No tremor. Psychiatric Exam: Alert and oriented, appropriate affect. Assessment / Plan The Pre-Op Tool Recommendations Intermediate Risk Procedure Risk of CV Complication (RCRI) 0.5% Current Cardiac Status Good exertional capacity ( > 4 mets ) Cardiac History No history of coronary artery disease Labs HGB within last 30 days EKG Not indicated CXR Not indicated Stress Testing Not indicated * Testing recommendations are intended to assist, but not direct, clinical decisions. Type & Screen should be obtained by Anesthesia only if the risk of transfusion is > 5% for the procedure Okay to take Acetaminophen (Tylenol) up until the procedure * Medication recommendations are not intended to be exhaustive; they are limited to common medications that are potentially dangerous if incorrectly managed Labs * Data supports the elimination of 'routine' laboratory testing in favor of focused 'indicated' testing (Anesth Analg. 2009;108:467-75; NICE guideline: Routine preoperative tests for elective surgery 2016. https://www.nice.org.uk/guidance/ng45 (accessed 11/15/2024). EKG * The ACC/AHA recommend against obtaining routine EKGs in patients undergoing low risk surgeries (JAC. 2023;84:1033-8882). Aspirin Management * In patients with a history of coronary stenting, TIA or CVA, and undergoing low or intermediate bleeding risk surgeries we recommend continuing aspirin. There may be other circumstances where it is reasonable to continue aspirin (NEJM. 2014;370:6379-2792; [employer] Specialist Med. 2018;168:237-44; CHEST. 2021;162:n633-n594). P2Y12 Management * Chest. 2021;162:x657-q424; CCJ 2024;92:213-9. Warfarin Management * Based on the BRIDGE trial our experts prefer not bridging CHADS 5-6 patients (JAC. 2015;66:1392-403; NEJM. 2015;373:823-33; CHEST 2021:162:b722-l559). DOAC Management * CHEST 2022;162:w650-v108. Stress Testing * There is no direct evidence to support benefit from either preoperative stress testing or prophylactic revascularization. For patients with known or suspected CAD our experts recommend stress testing only if it is indicated regardless of planed surgery. There may be special circumstances where it would be reasonable to pursue a cardiac work up ([facility]. 2023;84:1398-9731; [facility] 2024;92:213-90). Session ID: [id number] Endnotes and bibliography available upon request: [email or web address] Labs: GBS and hemoglobin pending ECG: no ICD-10-CM 1. Encounter for supervision of other normal , third trimester (HC) Z34.83 VAGINAL/RECTAL OB STREP PCR HEMOGLOBIN 2. Need for prophylactic vaccination and inoculation against influenza Z23 FluLaval Single Dose Syringe FLU VACCINE =>6 MO PRESERV FREE TRIVALENT IIV3 IM [[id number]] 3. History of section Z98.891 4. Preop examination Z01.818 5. Need for RSV vaccination Z29.11 ABRYSVO - RSV vaccine 120mcg/0.5mL bivalent [[id number]] -- for adults 50yo+ and for women Assessment & Plan Patient is cleared, pending tests ordered today, for planned procedure. Electronically Signed by: Raquel Drake MD 12/04/2024 [1] Past Surgical History: . Laterality Date SECTION 04/07/2023 ESOPHAGOGASTRODUODENOSCOPY 11/23/2014 FEMUR FRACTURE TREATMENT Left 2000 TONSIL AND ADENOIDECTOMY 1995 Progress Notes - OB Encounte r - 11/20/2024 - GA:34w1d 11/20/2024 - 34w1d - Raquel Drake MD SUBJECTIVE: Radha Bocanegra is a 29 y.o. female at 34+1 weeks. No concerns. See visit comments. OBJECTIVE: see OB vitals flow sheet Growth US today 2565 g (69%) ASSESSMENT : 34+1 weeks gestation with no complications with tubal ligation scheduled for 12/25 PLAN: labor signs and symptoms reviewed with patient including pain, cramping, bleeding or leaking fluid. RTC 2 weeks with GBS. FLU and RSV next visit, she thinks she got it with last , although cannot see any records. Raquel Drake MD .................... 11/20/2024 10:18 AM Progress Notes - OB Encounte r - 11/06/2024 - GA:32w1d 11/06/2024 - 32w - Raquel Drake MD SUBJECTIVE: Radha Bocanegra is a 29 y.o. female at 32+1 weeks. Having more BH contractions, has had a few more intense contractions, but in the setting of lifting, pulling, etc. No concerns. See visit comments. OBJECTIVE: see OB vitals flow sheet ASSESSMENT : 32+1 weeks gestation with no complications Plans for repeat , growth ultrasound next visit. Plans for tubal ligation with . PLAN: labor signs and symptoms reviewed with patient including pain, cramping, bleeding or leaking fluid. RTC 2 weeks. Raquel Drake MD .................... 11/06/2024 11:19 AM Progress Notes - OB Encounte r - 10/23/2024 - GA:30w1d 10/23/2024 - 30w - Raquel Drake MD SUBJECTIVE: Radha Bocanegra is a 29 y.o. female at 30+1 weeks. Yesterday developed low back pain radiating into the buttocks and around trace hips. No know injury, but does often have to carry her 1.5 year old. No concerns. See visit comments. OBJECTIVE: see OB vitals flow sheet ASSESSMENT : 30+1 weeks gestation with no complications Low back pain with radiation into bilateral buttock. Discussed massage, heat, stretching, option for PT or morning caregiver. She will message me if she desires consult order for PT PLAN: labor signs and symptoms reviewed with patient including pain, cramping, bleeding or leaking fluid. RTC 2 weeks. Raquel Drake MD .................... 10/23/2024 11:58 AM Progress Notes - OB Encounte r - 10/09/2024 - GA:28w1d 10/09/2024 - - Raquel Drake MD SUBJECTIVE: Radha Bocanegra is a 29 y.o. female at 28+1 weeks. She had a fall a couple weeks ago going down the stairs, hit the baby gate with her stomach. Baby has been active since. No bleeding. Has been having BH contractions. Sometimes regularly, but then taper off No concerns. See visit comments. OBJECTIVE: see OB vitals flow sheet ASSESSMENT : 28+1 weeks gestation with no complications Plans for repeat and salpingectomy this . PLAN: labor signs and symptoms reviewed with patient including pain, cramping, bleeding or leaking fluid. Discussed when to be seen for contractions, even if mild. Discussed need for monitoring if she has abdominal trauma. Diabetes, hemoglobin and syphilis screening today. TDaP today. RTC 2 weeks. Raquel Drake MD .................... 10/09/2024 10:38 AM Progress Notes - OB Encounte r - 09/10/2024 - GA:24w0d 09/10/2024 - wd - Raquel Drake MD SUBJECTIVE: Radha Bocanegra is a 29 y.o. female at 24 weeks. Has developed a cough and congestion over the last 2 days. No fevers. But last night had some sweats. Has tried Abdiaziz's last night. See visit comments. OBJECTIVE: see OB vitals flow sheet Lungs clear bilaterally. ASSESSMENT : 24 weeks gestation with no complications Plans for repeat and salpingectomy this . PLAN: labor signs and symptoms reviewed with patient including pain, cramping, bleeding or leaking fluid. Printed out safe medications in to help manage URI symptoms. Reach out if symptoms worsening or failing to improve. RTC 4 weeks with diabetes, hemoglobin and syphilis screening Raquel Drake MD .................... 09/10/2024 9:55 AM [facility] GA:20w0d 08/13/2024 - 20w0d - Raquel Drake MD SUBJECTIVE: Radha Bocanegra is a 29 y.o. female at 20 weeks. Migraine headaches have resolved! Unfortunately is having sciatica. Plan to see chiropractor No concerns. See visit comments. OBJECTIVE: see OB vitals flow sheet ASSESSMENT : 20 weeks gestation with no complications PLAN: labor signs and symptoms reviewed with patient including pain, cramping, bleeding or leaking fluid. Consult placed for Shellfish Checker consult for repeat and tubal ligation. RTC 4 weeks. Raquel Drake MD .................... 08/13/2024 1:56 PM [facility] GA:15w0d 07/09/2024 - w0d - Raquel Drake MD SUBJECTIVE: Radha Bocanegra is a 29 y.o. female at 15 weeks. Has had a headache off and on for the last 11 days. History of migraines in her teenage years. ON her way here, her headache hit and she had such severe pain and nausea, she threw up. Pain is in the right temporal and eye region. See visit comments. OBJECTIVE: see OB vitals flow sheet ASSESSMENT : 15 weeks gestation with no complications Migraine headaches Elevated blood pressure, although complicated by current migraine PLAN: Warning signs and symptoms reviewed with patient including pain, cramping, bleeding or leaking fluid. 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 Discussed treatment at home with tylenol + benadryl or tylenol + Caffeine and going to ER if no improvement for treatment. Recommend magnesium 400 mg/day to help prevent headaches. RTC 5 weeks with anatomy screen. Should be seen sooner if ongoing headaches. Raquel Drake MD .................... 07/09/2024 10:47 AM Progress Notes - OB Encounte r - 06/15/2024 - GA:11w4d 06/15/2024 - - Raquel Drake MD SUBJECTIVE: Radha Bocanegra is a 29 y.o. female at 11+4 weeks. No concerns, other than wants to make sure her UTI has resolved, she is still having fairly concentrated urine.. See visit comments. OBJECTIVE: see OB vitals flow sheet heart tones and movement seen on bedside US ASSESSMENT : 11+4 weeks gestation with no complications Still considering TOLAC vs repeat PLAN: Warning signs and symptoms reviewed with patient including pain, cramping, bleeding or leaking fluid. UA and culture completed today as well as screening GC/CHlamydia. Panorama drawn today. Patient would like sex reported, but would like to keep it secret initially. RTC 4 weeks. Raquel Drake MD .................... 06/15/2024 10:38 AM Progress Notes - OB Encounte r - 04/29/2024 - GA:4w6d 04/29/2024 - 4w6d - Marleen Galicia RN SUBJECTIVE: Radha Bocanegra is a 28 y.o. female, , who presents for confirmation and ob education. Patient presents to the clinic alone. Had positive test at home. This was Unplanned, Unsure Patient was on contraception (not taking daily) Date Reliability: definite ANTOINE based on LMP: 03/13/23 Estimated Date of Delivery: 12/18/24 Current symptoms include: Nausea:Yes - mild Vomiting:No Breast tenderness:No Vaginal bleeding:No Vaginal discharge:No Pelvic cramping:Yes - mild Fatigue:Yes Previous Delivery Type: Occupation of patient: [employer] Name of Partner or Father of baby: Casimiro Bahena (Jovany). MENSTRUAL HISTORY: Patient's last menstrual period was 03/13/2024 (exact date).: Cycle Regularity: regular, every 30-32 days Past Medical History: . Date Abnormal Pap smear of cervix Anemia 04/07/2023 Blood loss with delivery of baby in 03/2023 Attention deficit disorder with hyperactivity(314.01) 2001 Closed fracture of unspecified part of femur left GBS (group B Streptococcus carrier), +RV culture, currently 03/2023 History of blood transfusion 04/07/2023 Blood loss with delivery of baby 04/07/23 Infertility, female 03/2020 Letrazole taken for last Migraine headache Mild major depression, single episode 10/18/2008 Polysubstance abuse (HC) 08/22/2009 Scoliosis 09/05/2010 Smoking Varicella Had chicken pox as a child OB History Para Term AB Living 5 1 1 0 2 1 SAB IAB Ectopic Multiple Live Births 0 0 0 0 1 # Outcome Date GA Lbr Conrad/2nd Weight Sex Type Anes PTL Lv 5 Current 4 Term 04/07/23 40w2d 3.38 kg (7 lb 7.2 oz) F SPINAL, EPIDURAL, INTRATHECAL ERICKA Complications: Intolerance 3 AB 05/06/20 2 1 AB 5P'S SUBSTANCE ABUSE SCREEN FOR ALCOHOL, DRUGS AND TOBACCO: Did any of your parents have a problem with using alcohol or drugs? No Do any of your friends (peers) have problems with drug or alcohol use? No Does your partner have a problem with drug or alcohol use? No Before you knew you were , how often did you drink beer, wine, wine coolers or liquor or use any kind of drug? 4 days a week-1-2 drinks and once on the weekend In the past month, how often did you drink beer, wine, wine coolers or liquor or use any kind of drug? 4 days a week-1-2 drinks and once on the weekend How much did you smoke, vape or use tobacco or nicotine in any form before you knew you were ? 1/2-1 pack per day Genetic Screening Genetic Screening/Teratology Counseling- Includes patient, baby's father, or anyone in either family with: Patient's age 35 years or older as of estimated date of delivery: No Thalassemia (Kiswahili, Libyan, Mediterranean, or background): MCV less than 80: No Neural tube defect (Meningomyelocele, Spina bifida, or Anencephaly): No Congenital heart defect: No Down syndrome: No Ron-Sachs (Ashkenazi Religion, Cajun, Danish [place]): No Jac disease (Ashkenazi Religion): No Familial dysautonomia (Ashkenazi Religion): No Sickle cell disease or trait (): Yes (Comment: Baby's father tested positive for sickle cell gene as a child) Hemophilia or other blood disorders: No Muscular dystrophy: No Cystic fibrosis: No Oxford's chorea: No Intellectual disability and/or autism: Yes (Comment: Maternal sister on autism spectrum-mild) If yes, was the person tested for Fragile X?: No Other inherited genetic or chromosomal disorder: No Maternal metabolic disorder (eg. Type 1 diabetes, PKU): No Patient or baby's father had child with defects not listed above: No Recurrent loss, or a stillbirth: Yes (Comment: Three losses before 9 weeks ) Medications (including supplements, vitamins, herbs, or OTC drugs)/illicit/recreational drugs/alcohol since last menstrual period: Yes Any other: Multivitamin, Adderall, Ibuprofen, Tylenol, Triorthocycline ,Alcohol CURRENT MEDICATIONS: Current Outpatient Medications Medication Sig acetaminophen (TYLENOL EXTRA STRGTH) 500 mg tablet Take 2 Tablets (1,000 mg) by mouth every 6 hours if needed for Pain. Max acetaminophen dose: 4000mg in 24 hrs. albuterol HFA (PRO-AIR; VENTOLIN; PROVENTIL) 90 mcg/actuation inhaler Inhale 1-2 Puffs by mouth every 4 hours if needed for Shortness Of Breath or Wheezing. Breast Pump Purchase Electric breast pump for home use. Gestational age at delivery: 40 weeks. Reason for need: assist with breast feeding. Length of need: 99 months (lifetime use) dextroamphetamine-amphetamine (AdderalL) 20 mg tablet Take 1 Tablet (20 mg) by mouth two times daily. fluticasone (50 mcg per actuation) nasal solution (FLONASE) Inhale 2 Sprays into both nostrils once daily. (Patient taking differently: Inhale 2 Sprays in both nostrils once daily. Patient reports not currently using) ibuprofen (ADVIL; MOTRIN) 600 mg tablet Take 1 Tablet (600 mg) by mouth every 6 hours if needed for Pain. Maximum of 3200 mg in 24 hours. No current facility-administered medications for this visit. Medications have been reviewed by me and are current to the best of my knowledge and ability. ALLERGIES: Amoxicillin OBJECTIVE: Ht 1.7 m (5' 6.93) Wt 97.1 kg (214 lb 1.6 oz) LMP 03/13/2024 (Exact Date) BMI 33.60 kg/m ,URINE (no units) Date Value 09/22/2020 Negative ASSESSMENT/PLAN: ICD-10-CM 1. Encounter for supervision of other normal in first trimester Z34.81 ANTI HIV 1/2 VARICELLA-ZOSTER V AB, IGG CBC W PLT NO DIFF URINE CULTURE TYPE AND SCREEN RUBELLA IMMUNE STATUS TREPONEMA PALLIDUM HBSAG (HBS) ANTI HCV LC VARICELLA-ZOSTER V AB, IGG RESEARCH INTERN PROBE - GC CHLAMYDIA DNA PCR [VXZ0333] URINALYSIS W REFLEX MICROSCOPIC IF POSITIVE [85261.2] US 1ST TRIMESTER (< 14 weeks) [65398.0] EDUCATION/PATIENT INSTRUCTIONS - Advised patient to start/continue vitamin. - Discussed risk of using alcohol, tobacco, other drugs in . - Discussed healthy lifestyle in . - Provided copy of Beginnings book and book inserts, discussed [id number] medications, and follow up. - Encouraged patient to call clinic at [phone] with any vaginal bleeding, fluid leaking from vagina, severe abdominal pain, nausea with severe vomiting, fever higher than 100.4F, painful urination, headache not relieved by Tylenol, or other concerns - labs completed with today's visit. - Patient informed to schedule 1st trimester dating ultrasound between 7-10 weeks. - Initial OB appointment with FP/OB scheduled. PHQ-9, and COVID-19 vaccine discussion to be completed at this visit. Future Appointments Date Time Provider Department Center 04/29/2024 10:55 AM Raquel Drake MD [facility] Marleen Galicia RN .................... 04/29/2024 10:39 AM LE MAKER Progress Notes - OB Encounte r - 04/29/2024 - GA:4w6d 04/29/2024 - 4w6d - Raquel Drake MD FIRST OB VISIT HPI: Radha Bocanegra is a 28 y.o. female at 6w5d with antonio intrauterine here today for a initial OB exam. Estimated due date is Estimated Date of Delivery: 12/18/24 based on LMP, however was on oral contraceptive pills. She and her partner are conflicted about whether or not to continue the at this time. Nausea/Vomiting: minimal Breast tenderness: minimal Fatigue: yes Bleeding: no Taking vitamins: no, but will buy otc Options of sequential screen, cell-free DNA testing, amniocentesis were discussed. Patient is interested in pursuing testing. AMA: no Previous : yes OB History Para Term AB Living 5 1 1 0 2 1 SAB IAB Ectopic Multiple Live Births 0 0 0 0 1 # Outcome Date GA Lbr Conrad/2nd Weight Sex Type Anes PTL Lv 5 Current 4 Term 04/07/23 40w2d 3.38 kg (7 lb 7.2 oz) F SPINAL, EPIDURAL, INTRATHECAL ERICKA Complications: Intolerance 3 AB 05/06/20 2 1 AB Past Medical History: . Date Abnormal Pap smear of cervix Anemia 04/07/2023 Blood loss with delivery of baby in 03/2023 Attention deficit disorder with hyperactivity(314.01) 2001 Closed fracture of unspecified part of femur left GBS (group B Streptococcus carrier), +RV culture, currently 03/2023 History of blood transfusion 04/07/2023 Blood loss with delivery of baby 04/07/23 Infertility, female 03/2020 Letrazole taken for last Migraine headache Mild major depression, single episode 10/18/2008 Polysubstance abuse (HC) 08/22/2009 Scoliosis 09/05/2010 Smoking Varicella Had chicken pox as a child Past Surgical History: . Laterality Date SECTION 04/07/2023 ESOPHAGOGASTRODUODENOSCOPY 11/23/2014 FEMUR FRACTURE TREATMENT Left 2000 TONSIL AND ADENOIDECTOMY 1995 Family History Problem Relation Age of Onset Alcoholism Mother Sober since 2011 Depression Mother Thyroid Disease Mother hypothyroid Drug Abuse Father Recovered for 30+ years Cancer Father 53 lung CA Thyroid Disease Father hyperthyroid ADD / ADHD Sister Depression Sister Fibromyalgia Sister Good Health Daughter Other (other) Maternal Uncle Lung transplant Lung cancer Maternal Uncle Coronary artery disease Maternal Grandmother COPD Maternal Grandfather Coronary artery disease Paternal Grandfather Social History Tobacco Use Smoking status: Some Days Current packs/day: 0.25 Average packs/day: 0.3 packs/day for 8.9 years (2.2 ttl pk-yrs) Types: Cigarettes Start date: 06/14/2022 Smokeless tobacco: Never Tobacco comments: Smokes an average of 7 cigarettes a week (when she works) Substance Use Topics Alcohol use: Not Currently Current Outpatient Medications Medication Sig acetaminophen (TYLENOL EXTRA STRGTH) 500 mg tablet Take 2 Tablets (1,000 mg) by mouth every 6 hours if needed for Pain. Max acetaminophen dose: 4000mg in 24 hrs. albuterol HFA (PRO-AIR; VENTOLIN; PROVENTIL) 90 mcg/actuation inhaler Inhale 1-2 Puffs by mouth every 4 hours if needed for Shortness Of Breath or Wheezing. Breast Pump Purchase Electric breast pump for home use. Gestational age at delivery: 40 weeks. Reason for need: assist with breast feeding. Length of need: 99 months (lifetime use) dextroamphetamine-amphetamine (AdderalL) 20 mg tablet Take 1 Tablet (20 mg) by mouth two times daily. MULTIVITAMIN 12 IV Inject intravenous. No current facility-administered medications for this visit. Medications have been reviewed by me and are current to the best of my knowledge and ability. ALLERGIES Amoxicillin MENTAL HEALTH HISTORY History of psychiatric diagnosis: Anxiety, ADHD. History of pp depression. Current mental health provider: Yes: PCP Currently taking any psychiatric medications? Stopped her adderall last week INFECTION HISTORY Current Drug Use: none Relevant infection history from OB Questionnaire: none REVIEW OF SYSTEMS Comprehensive ROS complete and negative other than noted in HPI and on OB Questionnaire. PHYSICAL EXAM BP 154/89 (Cuff Site: Right Arm, Position: Sitting, Cuff Size: Adult Large) Pulse 97 Wt 97.1 kg (214 lb) LMP 03/13/2024 (Exact Date) SpO2 100% BMI 33.59 kg/m General Appearance: Alert, appropriate appearance for age. No acute distress. HEENT Exam: Grossly normal. Neck/Thyroid Exam: Supple, no masses, nodes or enlargement. Lungs: Clear to auscultation bilaterally. Breast Exam: Not indicated. Cardiovascular Exam: Regular rate and rhythm. S1, S2, no murmur. Abd: Soft, non-tender, no masses or organomegaly. Skin: no rashes or lesions. Lymphatics: no nodes palpable. Psychiatric Exam: Alert and oriented x 3, appropriate affect. Pelvic Exam: not indicated ASSESSMENT/PLAN 28 y.o. at 6w5d with antonio intrauterine . ICD-10-CM 1. Encounter for supervision of other normal , first trimester Z34.81 2. Encounter for supervision of other normal in first trimester Z34.81 3. Recurrent loss N96 Patient to schedule US dorothy to help with dating as this may impact how/if they decide to terminate. Discussed vaginal progesterone does not have good data to support it's use to prevent miscarriage. She did use with last , but letrozole was also use to help conceive. Patient declines vaginal progesterone for now. With history of pp depression, discussed starting SSRI in late or on hospital d/c. Discussed pros/cons of stimulant use in . She was able to manage without adderall last , so plans to hold again. If they decide to continue with the , she is planning on repeat c- section adn tubal ligation/salpingectomy at the time of the surgery. Satisfactory exam. Demonstrates appropriate and health-seeking behaviors toward her . Verbalizes good understanding of care schedule and the importance of coming to each visit as scheduled. Start/continue vitamins. Reviewed labs. She was encouraged to call the office with any questions or concerns. Body mass index is 33.59 kg/m . Diet and expected weight gain discussed with patient. DEPRESSION SCREEN 06/18/2023 10:00 AM PHQ Depression Screening Date of PHQ exam (doc flow) 06/18/2023 1. Lack of interest/pleasure 0 - Not at all 2. Feeling down/depressed 0 - Not at all PHQ-2 TOTAL SCORE 0 Intervention: Not Depressed Raquel Drake MD LE MAKER Last Filed Vital Signs Vital Sign Reading Time Taken Comments Blood Pressure 148/102 01/11/2025 1:14 PM NEEDLE MAKER Pulse 75 01/11/2025 12:53 PM NEEDLE MAKER Temperature 36.6 C (97.8 F) 09/10/2024 9:49 AM CDT Respiratory Rate 16 04/09/2023 11:4 5 PM NEEDLE MAKER Oxygen Saturation 96% 01/11/2025 12: 53 PM NEEDLE MAKER Inhaled Oxygen Concentration - - Weight 103.2 kg (227 lb 9.6 oz) 025 10:09 AM CDT Height 170 cm (5' 6.93) 04/29/2024 10: 03 AM NEEDLE MAKER Body Mass Index 35.72 04/29/2024 10:03 AM NEEDLE MAKER Plan of Treatment Upcoming Encounters Date Type Department Care Team (Late st Contact Info) Description 01/25/2025 12:45 PM NEEDLE MAKER Office Visit [facility] [address] [place] [address] Marisa Perkins DO [address] [place] [address] Health Maintenance Due Date Last Done Comments Hepatitis B series for 19+ ( 1 of 3 - 19+ 3-dose series) 2012 Pneumococcal series for age 6-49 (1 of 2 - PCV) 2012 Depression screening for age 12+ 06/17/2024 06/18/2023, 04/18/2020, 04/04/2020, Additional history exists BMI (ht and wt on same day) for age 18+ 04/29/2025 04/29/2024, 06/18/2023, 04/18/2020, Additional history exists Pap test for age 21-65 05/15/2028 (Verified in Care Everywhere or Patient Record), 09/28/2020 (Verified in Care Everywhere or Patient Record), 02/24/2016, Additional history exists Tetanus booster 10/09/2034 10/09/2024, 11/0 09/2022, 12/21/2015, Additional history exists HPV series for age 9-45 Completed 09/09/19, 09/09/2007, 05/07/2007, Additional history exists HIV for age 15-65 Completed 04/29/2024, 03/29/2020 Hepatitis C screening for ag e 18-79 Completed 04/29/2024, 03/29/2020 Influenza Vaccine Completed 12/04/2024, , 04/18/2020, Additional history exists RSV vaccine for adults or Completed 12/04/2024 Procedures Procedure Name Priority Date/Time Associated Diagnosis Comments LAB TRACKING EVENT Routine 12/25/2024 11 :30 AM CDT PATH TISSUE EXAM PLACENTA Routine 12/25/2024 11:30 AM CDT HEMOGLOBIN Routine 12/04/2024 10:51 AM CDT Encounter for supervision of other normal , third trimester (HC) VAGINAL/RECTAL OB STREP PCR Routine 12/04/2024 10:30 AM CDT Encounter for supervision of other normal , third trimester (HC) US OB FOLLOW UP ANY TRI SINGLE TA Routine 11/20/2024 11:13 AM CDT Encounter for supervision of other normal , second trimester (HC) ANTI HIV 1/2 Routine 04/29/2024 11:38 AM NEEDLE MAKER Encounter for supervision of other normal in first trimester (HC) ANTI HCV Routine 04/29/2024 11:38 AM NEEDLE MAKER Encounter for supervision of other normal in first trimester (HC) RESEARCH INTERN THIN PREP PAP SCREEN IMAGED Routine 02/24/2016 2:51 PM NEEDLE MAKER Screening for malignant neoplasm of cervix from Last 3 Months or Most Recently Relevant to Health Maintenance Results * LAB TRACKING EVENT (12/25/2024 11:30 AM CDT) Other (Other) Client Collect / Unknown 12/25/2024 11:30 AM CDT 12/26/2024 7:01 AM CDT us Elaine Melton MD LAB BILL ONLY Final Re sult [facility] [address] [place] [address], * PATH TISSUE EXAM PLACENTA (12/25/2024 11:30 AM CDT) Case Report Pathology Report Case: [id number] Authorizing Provider: Elaine Melton MD Collected: 12/25/2024 1130 Ordering Location: [facility] Received: 12/28/2024 0737 Pathologist: Ronny Jacob MD Specimens: A) - Placenta B) - Bilateral Fallopian Tubes 12/29/2024 11:32 AM CDT [facility] Final Diagnosis A) PLACENTA, DELIVERY: 1. Third trimester antonio placenta with the following characteristics: a. Weight: 539 grams (39 week 10-90th percentile weight range, 426 - 611 grams) b. Membranes/ surface: Mild acute subchorionitis (grade 1, stage 1) c. Umbilical cord: Three vessel cord Negative for funisitis d. Disc/Villi: Chorionic villi consistent with gestational age Negative for villitis Placental disc without infarcts e. Decidua/basal plate: No diagnostic abnormalities identified B) RIGHT AND LEFT FALLOPIAN TUBES, BILATERAL SALPINGECTOMY: 1. Bilateral fimbriated fallopian tubes with no significant histologic abnormality 2. Negative for malignancy 12/29/2024 11:32 AM CDT [facility] at 1132 CDT Clinical Information Indications for Placental Examination by Pathology Maternal indications: Tobacco use Infectious specimen (e.g. maternal HIV or HCV): No Clinical information: Date of delivery: 12/25/2024 Time of delivery: 1130 Type of delivery: Live born:Yes Gestational age: 39.1 weeks weight of infant(s): 3410 grams Sex of (s): Female Pertinent Maternal History: Maternal parity: Diabetes: No Hypertension: No Eclampsia: No Smoking: Yes Desires permanent sterilization 12/29/2024 11:32 AM T [facility] Gross Description A) Received fresh labeled with the patient's name and placenta, is a 539 gram, 24.5 x 19.1 x 2.2 cm antonio placenta. The surface is blue-tellez with normal vasculature. The 42.5 cm long, 1.3 cm diameter trivascular umbilical cord is eccentrically inserted 7.0 cm from the nearest edge of the placental plate. The umbilical cord is free of true and false knots. There are 4 revolutions per 10 cm. The extraplacental membranes are pink semitransparent and marginally inserted. The maternal surface is complete with intact cotyledons. There is a 9.3 x 4.0 x 1.0 cm peripheral area of placental thinning. Sectioning reveals a spongy hemorrhagic center throughout [employer] sections are submitted: 1. membranes and insertion 2. Umbilical cord 3. Placenta parenchyma at umbilical cord insertion, full-thickness 4-5. Central placental parenchyma, full-thickness 6. Peripheral placenta thinning, full-thickness Time and date in formalin: 1247 on 12/28/2024 TRS 12/28/2024 B) Received in formalin, labeled with the patient's name and bilateral fallopian tubes, are 2 segments of unoriented fimbriated fallopian tubes measuring 6.6 and 7.1 cm in length and averaging 0.8 cm in diameter. The serosa is purple and smooth. Sectioning reveals patent lumens. No lesions are identified. [employer] sections are submitted as follows: 1. [place] fallopian tube, including entire fimbriated end 2. Longer fallopian tube, including entire fimbriated end JARRETT 12/28/2024 12/29/2024 11:32 AM T [facility] Microscopic Description The final diagnosis is based on microscopic examination of appropriate sections of all specimens. 12/29/2024 11:32 AM [facility] Additional Information Interpreted at [facility], Central Laboratory - [address], [place] [address] 12/29/2024 11:32 AM CDT [facility] Tissue SPECIMEN FROM PLACENTA / Unknown 12/25/2024 11:30 AM CDT 12/28/2024 7:37 AM CDT Tissue specimen (specimen) (Bilateral Fallopian Tubes) 12/25/2024 11:30 AM CDT 12/28/2024 8:29 AM CDT us Elaine Melton MD PATHOLOGY/CYTOLOGY Final Result [facility] [address] [place] [address], * HEMOGLOBIN (12/04/2024 10:51 AM CDT) HEMOGLOBIN 12.1 11.7 - 15.5 g/dL 12/05/2024 2:29 AM CDT [facility] MCV 90.8 80.0 - 100.0 fL 12/05/2024 2:29 AM CDT [facility] Blood BLOOD SPECIMEN / Unknown [facility] / Unknown 12/04/2024 10:51 AM CDT 12/04/2024 10:51 AM CDT Raquel Drake MD HEMATOLOGY Final R esult [facility] [address] [id number], * (ABNORMAL) VAGINAL/RECTAL OB STREP PCR (12/04/2024 10:30 AM CDT) Vaginal/Rectal OB Strep B PCR Positive( A) 12/07/2024 9:02 AM CDT [facility] LAB[facility]AT[facility] Comment:If susceptibility is needed due to penicillin allergy, contact lab. Other (Vaginal/Rectal) Non-Blood / Unknown 12/04/2024 10:30 AM CDT 12/04/2024 11:04 AM CDT us Raquel Drake MD MICROBIOLOGY Final R esult [facility] [address] [place] [address], [place] * US OB FOLLOW UP ANY TRI SINGLE TA (11/20/2024 11:13 AM CDT) Anatomical Region Laterality Modality , 2or 3 TRIMESTER Ultrasound 11/20/2024 2:10 PM CDT Impressions 11/20/2024 2:10 PM CDT Sonographic gestational age 34 weeks 5 days and sonographic due date of 12/27/2024. Good correlation with dates. Normal interval growth. Estimated weight 69th percentile. Abdominal circumference 92nd percentile. Dictated by Santiago Regalado MD @ 11/20/2024 2:10:47 PM (Electronically Signed) Narrative 11/20/2024 2:10 PM CDT For Patients: As a result of the Cures Act, medical imaging exams and procedure reports are released immediately into your electronic medical record. You may view this report before your referring provider. If you have questions, please contact your health care provider. INDICATION: Third trimester scan, evaluate growth. COMPARISON: 08/28/2024 TECHNIQUE: Real-time tellez-scale imaging of the fetus was performed transabdominal FINDINGS: Sonographic imaging demonstrates a single living intrauterine gestation. Fetus demonstrates a regular cardiac rate of 138 beats per minute. Fetus has a vertex position. The placenta lies posteriorly without evidence of placenta previa. Amniotic fluid volume appears normal and there is a single deepest vertical pocket: 6.4 cm. The estimated weight is 2565 gm which lies at the 69th%. On the prior OB ultrasound exam dated 08/28/2024 the estimated weight was at the 64th%. The biometric indices all lie within normal range. The HC/AC ratio measures 0.96 range (0.96-1.11). Procedure Note Santiago Regalado MD - 11/20/2024 For Patients: As a result of the Cures Act, medical imagingexams and procedure reports are released immediately into your electronicmedical record. You may view this report before your referring provider.If you have questions, please contact your health care provider. INDICATION: Third trimester scan, evaluate growth. COMPARISON: 08/28/2024 TECHNIQUE: Real-time tellez-scale imaging of the fetus was performed transabdominal FINDINGS: Sonographic imaging demonstrates a single living intrauterine gestation.Fetus demonstrates a regular cardiac rate of 138 beats per minute. Fetushas a vertex position. The placenta lies posteriorly without evidence ofplacenta previa. Amniotic fluid volume appears normal and there is asingle deepest vertical pocket: 6.4 cm. The estimated weight is 2565gm which lies at the 69th%. On the prior OB ultrasound exam dated08/28/2024 the estimated weight was at the 64th%. The fetalbiometric indices all lie within normal range. The HC/AC ratio measures0.96 range (0.96- 1.11). IMPRESSION: Sonographic gestational age 34 weeks 5 days and sonographic due date of12/27/2024. Good correlation with dates. Normal interval growth. Estimated weight 69th percentile. Abdominal circumference 92ndpercentile. Dictated by Santiago Regalado MD @ 11/20/2024 2:10:47 PM (Electronically Signed) us Raquel Drake MD Final R esult * ANTI HCV (04/29/2024 11:38 AM NEEDLE MAKER) HEPATITIS C ANTIBODY NON-REACTI VE NON-REACT MITESH Who is [facility] Comment: HCV antibody was non-reactive. There is no laboratory evidence of HCV infection. In most cases, no further action is required. However, if recent HCV exposure is suspected, a test for HCV RNA (test code 01893) is suggested. For additional information please refer to http://education.HelloBooks.Alma Johns/faq/RHY62q2 (This link is being provided for informational/ educational purposes only.) Blood BLOOD SPECIMEN / Unknown 04/29/2024 11:38 AM NEEDLE MAKER 04/29/2024 11:39 AM NEEDLE MAKER Raquel Drake MD SEND OUTS Final R esult Performing Organization Address [facility] de Phone Number [facility] [address] [place] [address], [facility] [address] [place] [address] * ANTI HIV 1/2 (04/29/2024 11:38 AM NEEDLE MAKER) HIV AG/AB, 4TH GEN NON-REACT MITESH NON-REACT MITESH [facility] Comment: HIV-1 antigen and HIV-1/HIV-2 antibodies were not detected. There is no laboratory evidence of HIV infection. PLEASE NOTE: This information has been disclosed to you from records whose confidentiality may be protected by state law. If your state requires such protection, then the state law prohibits you from making any further disclosure of the information without the specific written consent of the person to whom it pertains, or as otherwise permitted by law. A general authorization for the release of medical or other information is NOT sufficient for this purpose. For additional information please refer to http://education.Egoscue/faq/JPG863 (This link is being provided for informational/ educational purposes only.) The performance of this assay has not been clinically validated in patients less than 2 years old. Blood BLOOD SPECIMEN / Unknown 04/29/2024 11:38 AM NEEDLE MAKER 04/29/2024 11:39 AM NEEDLE MAKER Raquel Drake MD SEND OUTS Final R esult Performing Organization Address [facility]/[employer] de Phone Number [employer] [facility] [address] [place] [address], [facility] [address] [place] [address] * (ABNORMAL) RESEARCH INTERN THIN PREP PAP SCREEN IMAGED (02/24/2016 2:51 PM NEEDLE MAKER) Case Report Gynecologic Cytology Report Case: [id number] Authorizing Provider: Ivanna Singletary PA Collected: 02/24/2016 1451 Ordering Location: [facility] Received: 02/24/2016 1451 Clinic First Screen: Marito Da Silva Pathologist: Wilfredo Lewis Jr., MD Specimen: RESEARCH INTERN ThinPrep Vial Screening, Cervical 03/06/2016 1:02 PM [facility] INTERPRETATION/ RESULT ATYPICAL SQUAMOUS CELLS OF UNDETERMINED SIGNIFICANCE (ASCUS)(A) (none) 03/06/2016 1:02 PM NEEDLE MAKER [facility] at [address] NEEDLE MAKER ORGANISM(S) Fungal organisms morphologically consistent with [place]ma species 03/06/2016 1:02 PM NEEDLE MAKER [facility] SPECIMEN ADEQUACY Satisfactory for evaluation Endocervical component present 03/06/2016 1:02 PM [facility] HPV REQUEST HPV if ASCUS 03/06/2016 1:02 PM NEEDLE MAKER [facility] Date of LMP 01/15/2016 03/06/2016 1:02 PM NEEDLE MAKER [facility] Last Pap Date first pap 03/06/2016 1:02 PM NEEDLE MAKER [facility] Last Pap Result First Pap/Unknown 1:02 PM NEEDLE MAKER [facility] Abnormal Pap or [place] Bx in last 5 years No 03/06/2016 1:02 PM NEEDLE MAKER [facility] Menstrual Status Irregular Periods 03/06/2016 1:02 PM NEEDLE MAKER [facility] [place] Bx Done Today No 03/06/2016 1:02 PM [facility] Additional Information None given 03/06/2016 1:02 PM [facility] Automated Review Successful 03/06/2016 1:02 PM [facility] Comment:Specimen processed s uccessfully by automated ordnance keeper device, ThinPrep Imaging System, [employer] ANCILLARY TESTING RESEARCH INTERN HPV Ordered, Please see separate report 03/06/2016 1:02 PM NEEDLE MAKER [facility] Note The pap test is a screening technique, not a diagnostic procedure. It is used primarily to screen for squamous cancers and precursor lesions. Published studies have shown that it is subject to both false negative and false positive results. The pap test should not be used as the sole means to diagnose or exclude pre-malignant and malignant lesions. Interpreted at [facility] (Central Lab, [facility], [facility], [facility], [facility], [facility]) 03/06/2016 1:02 PM NEEDLE MAKER [facility]TRAL LAB[facility]ATORY Other (Cervical) 02/24/2016 2:51 PM NEEDLE MAKER 02/24/2016 2:51 PM NEEDLE MAKER us Ivanna WASHBURN PATHOLOGY/CYTOLOGY Final R esult [facility] [address] [place] [address], from Last 3 Months or Most Recently Relevant to Health Maintenance Insurance [employer] [employer] [facility] Advance Directives * Full Code (Latest Code Status on File) Date Activated Date Inactivated Comments 04/08/2023 8:39 AM 04/10/2023 6:30 PM Question Answer Comments Code Status Discussion: Reviewed Preferences * Full Code Date Activated Date Inactivated Comments 04/07/2023 12:29 PM 04/08/2023 8:39 AM Question Answer Comments Code Status Discussion: Unable to Assess Preferences, Provider to review later * Full Code Date Activated Date Inactivated Comments 11/26/2014 12:11 PM 11/26/2014 2:59 PM * Full Code Date Activated Date Inactivated Comments 11/26/2014 10:15 AM 11/26/2014 12:11 PM Care Teams Dock Coordinator Relationship Specialty Start Date End Date Ivanna Singletary PA [address] [place] [address] PCP - General Physician Bilingual Legal Assistant 10/27/22
--- NOTE | 2025-01-11 14:53 | ED.GENADULT ---
HPI - General Adult General Date Seen: 01/11/25 Chief complaint: Hypertension Stated complaint: High Bp/Headache sent from clinic Time Seen by Provider: 01/11/25 14:40 History of Present Illness HPI narrative: 29-year-old female who underwent a scheduled repeat on 12/19/2024. She had uncomplicated delivery and delivered a baby girl. Pain was controlled and she was able to discharge on 12/27. Per her discharge summary blood pressure was ranging 116/74 up to 119/67 while she was in the hospital. She was afebrile. She also has a history migraine headaches, ADHD, tobacco use, previous hemorrhage. She had a 2 week postop incision check after her today. Her primary care provider sent her to the ER with concern that she has headaches and elevated blood pressure. Per at electronic medical record through [facility] she saw Dr. lara today. She was told to go to the ER to look for severe preeclampsia and also was given a prescription for nifedipine 30 mg XL once daily. To me, patient reports that she has minutes being headaches every day since last Saturday or so. She initially attributed headache to just being exhausted since she has been up at night feeding her yet also taking a 2-year-old toddler. Will headache is mostly in the occiput. Sometimes radiates down to her neck but no neck stiffness. No fever. She sometimes gets a little bit dizzy. No blurry vision or diplopia or flashing lights in her eyes. No nausea. She is not having any abdominal pain. No redness or swelling around her orbital incision. She still having light vaginal bleeding. No brownish discharge. No swelling in her legs. Related Data Home Medications ?Medication ?Instructions ?Recorded ?Confirmed dextroamphetamine-amphetamine 10 10 mg PO QDAY PRN 09/08/24 12/25/24 mg tablet (Adderall) docosahexaenoic acid 200 mg mg PO 09/08/24 12/11/24 capsule ( DHA) Previous Rx's ?Medication ?Instructions ?Recorded acetaminophen 500 mg tablet 1,000 mg (2 x 500 mg) PO Q6H PRN 12/27/24 Pain 30 days #60 tabs docusate sodium 100 mg capsule 100 mg PO DAILY 30 days #30 caps 12/27/24 ibuprofen 600 mg tablet 600 mg PO Q6H PRN Pain 30 days #60 12/27/24 tabs modified lanolin 100 % topical 1 applic topical Q1H PRN #21 grams 12/27/24 cream (Lanolin (HPA)) Allergies Allergy/AdvReac Type Severity Reaction Status Date / Time amoxicillin Allergy Intermediate Rash Verified 01/11/25 17:08 [facility] Surgical History (Updated 01/11/25 @ 18:29 by Estee Sung MD) History of delivery ?Z98.891 - History of uterine scar from previous surgery (ICD-10) Social History What is your current living situation?: I presently have a place to live Problems where you live: no known problems In the past 12 months, utilities in danger of being shut off: no In past 12 months, lack of transportation kept you from medical appts, meetings, work, or getting things needed for daily living: no In the past 12 mos, have been you worried that your food would run out before you had money to buy more?: never true In the past 12 mos, the food you bought just didn't last and you didn't have money to buy more?: never true Smoking Status: Former smoker How often does anyone, including family, friends and others, physically hurt you: never How often does anyone, including family, friends and others, insult or talk down to you: never How often does anyone, including family, friends and others, threaten you with harm: never How often does anyone, including family, friends and others, scream or curse at you: never Exam Narrative: Exam Narrative: Constitutional: Appears well-developed and well-nourished. Alert. Conversant. Non toxic. HENT: Head: Atraumatic. Nose: Nose normal. Mouth/Throat: Oral mucosa is clear and moist. no trismus. Pharynx normal. Tonsils symmetric. No tonsillar enlargement, erythema, or exudate. Eyes: Conjunctivae normal. EOM normal. Pupils equal, round, and reactive to light. No scleral icterus. Neck: Normal range of motion. Neck supple. No tracheal deviation present. Cardiovascular: Normal rate, regular rhythm. No gallop. No friction rub. No murmur heard. Symmetric radial artery pulses Pulmonary/Chest: Effort normal. No stridor. No respiratory distress. No wheezes. No rales. No rhonchi . No tenderness. Abdominal: Soft. Bowel sounds normal. No distension. No mass. No tenderness. No rebound. No guarding. The lower transverse incision looks good. Wound edges well apposed. No erythema. No bleeding. No purulent drainage. Musculoskeletal: RUE: Normal range of motion. No tenderness. No deformity LUE: Normal range of motion. No tenderness. No deformity RLE: Normal range of motion. No edema. No tenderness. No deformity LLE: Normal range of motion. No edema. No tenderness. No deformity Neurological: Alert and oriented to person, place, and time. Normal strength. CN II-VII intact. No sensory deficit. GCS eye subscore is 4. GCS verbal subscore is 5. GCS motor subscore is 6. Normal coordination Skin: Skin is warm and dry. No rash noted. No pallor. Normal capillary refill. Psychiatric: Normal mood. Normal affect. Const: Vital Signs, click to edit/add: Vital Signs - 24 hr 01/11/25 14:20 01/11/25 15:15 01/11/25 16:02 Temperature 97.9 F Pulse Rate 67 Pulse Rate [Pulse Oximeter] 71 Respiratory Rate 16 16 Blood Pressure 144/96 H Blood Pressure [Ri ght Upper Arm] 163/111 H 146/96 H Pulse Oximetry 97 95 Oxygen Delivery Me thod Room Air Room Air Course Vital Signs Vital signs: Initial Vital Signs Temperature 97.9 F 01/11/25 14:20 Temperature Source Temporal Artery Scan 01/11/25 14:20 Pulse Rate 71 01/11/25 14:20 Respiratory Rate 16 01/11/25 14:20 Blood Pressure 163/111 H 01/11/25 14:20 Blood Pressure Mean 128 H 01/11/25 14:20 Blood Pressure Position Sitting 01/11/25 14:20 Pulse Oximetry 97 01/11/25 14:20 Oxygen Delivery Method Room Air 01/11/25 14:20 Vital Signs Temperature 97.9 F 01/11/25 14:20 Pulse Rate 71 01/11/25 14:20 Respiratory Rate 16 01/11/25 14:20 Blood Pressure 163/111 H 01/11/25 14:20 Pulse Oximetry 97 01/11/25 14:20 Oxygen Delivery Method Room Air 01/11/25 14:20 Temperature 98.6 F 01/11/25 16:16 Pulse Rate 97 01/11/25 18:35 Respiratory Rate 16 01/11/25 18:35 Blood Pressure 132/78 01/11/25 18:35 Pulse Oximetry 98 01/11/25 18:35 Oxygen Delivery Method Room Air 01/11/25 18:35 Medications Administered Medications: Generic Name Dose Route Start Last Admin Trade Name Freq PRN Reason Stop Dose Admin Magnesium Sulfate 40 gm in 1,000 mls @ 50 mls/hr 01/11/25 15:45 01/11/25 16:44 Magnesium Infusion IVPB 2 gm/hr .Q20H MIYA 50 mls/hr 2 GM/HR Administration Lactated Ringer's 1,000 mls @ 75 mls/hr 01/11/25 16:25 01/11/25 16:26 Lactated Ringers 1000 Ml IV 75 mls/hr .[id number] MIYA Administration Ibuprofen 600 mg 01/11/25 19:13 01/11/25 19:41 Ibuprofen 600 Mg Tablet PO 600 mg Q6H PRN Administration Discontinued Medications Generic Name Dose Route Start Last Admin Trade Name Freq PRN Reason Stop Dose Admin Acetaminophen 1,000 mg 01/11/25 15:37 01/11/25 16:00 Acetaminophen 500 Mg Tablet PO 01/11/25 15:38 1,000 mg ONCE ONE Administration Magnesium Sulfate 4 gm in 100 mls @ 200 mls/hr 01/11/25 15:44 01/11/25 16:43 Magnesium Iv IVPB 01/11/25 16:13 Infused ONCE ONE Infusion Nifedipine 30 mg 01/11/25 16:30 01/11/25 16:40 Nifedipine Er 30 Mg Tab PO 30 mg DAILY MIYA Administration Nifedipine 30 mg 01/11/25 17:53 01/11/25 18:08 Nifedipine Er 30 Mg Tab PO 01/11/25 17:54 30 mg ONCE ONE Administration Medical Decision Making MDM Narrative Medical decision making narrative: Very pleasant 29-year-old female who is 2 weeks after delivery sent to the ER today from clinic because of headaches and concerning hypertension. She had a blood pressure of about 160/90 a clinic in 160/110 here in the ER. Blood pressure did come down to about 140/90 after she settled here in the ER but still remains higher than goal. We made consultation with obstetrics, Dr. Melton who came to the ER to evaluate the patient. With the patient's headache and hypertension she does think this represents preeclampsia with severe features and will recommend admission to the OB floor for magnesium and further treatment. At the time of this dictation CBC is normal. No evidence for anemia, hemolysis, or thrombocytopenia. Kidney function is normal. LFT results are pending at the time of this dictation. Urinalysis shows no evidence for proteinuria or infection. Since blood pressure has improved down to 140/90, will hold off on additional antihypertensive such as labetalol unless the patient develops worsening blood pressure or symptoms. Patient is agreeable to admission. She is making arrangements for her toddler. She will bring her with her. Lab Data Labs: Lab Results 01/11/25 01/11/25 Range/Units 14:40 14:55 WBC 7.33 (4.50-11.00) K/uL RBC 4.42 (4.00-5.20) m/uL Hgb 12.7 (12.0-16.0) gm/dL Hct 39.0 (33.0-51.0) % MCV 88 (80-100) fL MCH 29 (26-34) pg MCHC 33 (32-36) gm/dL RDW Coeff of Christopher 12.3 (11.5-15.5) % Plt Count 409 (140-440) K/uL Neut % (Auto) 56.1 (42.0-72.0) % Lymph % (Auto) 30.8 (20-44) % [place] % (Auto) 7.4 (0.0-11.0) % Eos % (Auto) 4.6 (0.0-7.0) % Baso % (Auto) 1.0 (0.0-3.0) % Neut # (Auto) 4.11 (1.7-7.0) K/uL Lymph # (Auto) 2.26 (0.90-2.90) K/uL [place] # (Auto) 0.50 (0.00-0.90) K/UL Eos # (Auto) 0.34 (0.00-0.50) K/uL Baso # (Auto) 0.07 (0.00-0.30) K/uL Abs Immat Gran (auto) 0.01 (0.00-0.30) K/uL Imm/Tot Granulo (auto) 0.1 % Sodium 137 (135-149) mmol/L Potassium 4.0 (3.6-5.1) mmol/L Chloride 107 (96-114) mmol/L Carbon Dioxide 24 (20-32) mmol/L Anion Gap 6 L (7-15) mEq/L BUN 13 (5-24) mg/dL Creatinine 0.8 (0.5-1.5) mg/dL Estimated Creat Clear 95.38 Estimated GFR 101 ml/min Glucose 89 (60-115) mg/dL Calcium 9.1 (8.4-10.6) mg/dL Total Bilirubin 0.5 (0.1-1.5) mg/dL Direct Bilirubin 0.3 (0.0-0.5) mg/dL AST 18 (12-35) U/L ALT 16 (4-35) U/L Alkaline Phosphatase 124 (40-150) U/L Total Protein 7.4 (6.0-8.3) g/dL Albumin 4.1 (3.3-5.0) g/dL Urine Color Yellow (Yellow) Urine Appearance Clear (Clear) Urine pH 5.5 (5.0-8.5) Ur Specific [place] 1.020 (1.000-1.030) Urine Protein Negative (Negative) Urine Glucose (UA) Negative (Negative) Urine Ketones Negative (Negative) Urine Blood 3+ A (Negative) Urine Nitrite Negative (Negative) Urine Bilirubin Negative (Negative) Urine Urobilinogen 0.2 (0.2-1.0) Ur Leukocyte Esterase Negative (Negative) Urine RBC 0-2 (0-2) Urine WBC 2-5 (0-5) Ur Squamous Epith Cells Few (None-Few) Urine Bacteria Few A (None) Discharge Plan Discharge Clinical Impression: Pre-eclampsia Patient Disposition: Admit to OB
[2025-01-11 14:55] LABS: Appearance Urine Clear (Clear)
[2025-01-11 15:02] LABS: Hematocrit* 39.0 % (33.0-51.0); Hemoglobin* 12.7 gm/dL (12.0-16.0); Immature Granulocytes Abs Auto 0.01 K/uL (0.00-0.30); Immature Granulocytes Pct Auto 0.1 %; Lymphocytes Absolute Auto 2.26 K/uL (0.90-2.90); Mean Corpuscular HGB Conc 33 gm/dL (32-36); Mean Corpuscular Hemoglobin 29 pg (26-34); Mean Corpuscular Volume 88 fL (80-100); RDW Coefficient of Variation % 12.3 % (11.5-15.5); Red Blood Count* 4.42 m/uL (4.00-5.20); White Blood Count* 7.33 K/uL (4.50-11.00)
[2025-01-11 15:08] LABS: Slide Review Reflex No
[2025-01-11 15:20] LABS: Albumin* 4.1 g/dL (3.3-5.0); Chloride* 107 mmol/L (96-114); Potassium* 4.0 mmol/L (3.6-5.1); Sodium* 137 mmol/L (135-149)
[2025-01-11 15:23] LABS: Alanine Aminotransferase* 16 U/L (4-35); Alkaline Phosphatase* 124 U/L (40-150); Anion Gap 6 mEq/L (7-15); Aspartate Amino Transferase* 18 U/L (12-35); Bilirubin Direct* 0.3 mg/dL (0.0-0.5); Bilirubin Total* 0.5 mg/dL (0.1-1.5); Blood Urea Nitrogen* 13 mg/dL (5-24); Calcium* 9.1 mg/dL (8.4-10.6); Carbon Dioxide* 24 mmol/L (20-32); Creatinine* 0.8 mg/dL (0.5-1.5); Est. Creatinine Clearance* 95.38; Estimated Glomerular Filt Rate 101 ml/min; Glucose* 89 mg/dL (60-115); Total Protein* 7.4 g/dL (6.0-8.3)
--- NOTE | 2025-01-11 15:56 | P.OBCN_ITS ---
OB - CN: HPI Date of Consult Time Seen by Provider: 15:56 Date Seen: 01/11/25 Patient: Mary Anne Patient Consult date: 01/11/25 Primary Care Provider: Raquel Drake MD Consult Narrative Narrative: The patient is a 29 year old G 5 P 2 who is status post repeat with bilateral salpingectomy on 12/25 who presents to the emergency department for elevated blood pressures. Patient was evaluated in the [facility] clinic today, where she was noted to have a severe range blood pressure. Recommended she present to the ED. On arrival, her initial BP was 163/111. Recheck 55 minutes later was 146/96. Patient notes that she has been monitoring her blood pressure at home since Saturday, after she noted an increase in her bleeding. She has had BPs in the 150s/100s all weekend. She additionally had has significant headaches since Saturday, where ibuprofen/tylenol will take the edge off but her headache persists. No vision changes, feels intermittently a bit off or woozy. No RUQ pain. No chest pain or dyspnea. Patient notes her recovery has otherwise been uncomplicated. Pain is well controlled, no incision concerns. Her bleeding has decreased significantly since her exacerbation on Saturday, now can wear one pad all day. She denies fever/chills, nausea/vomiting. No bowel or bladder concerns. She is ajit stfeeding successfully. History History 5 Elective abortions Para 2 Spontaneous abortions Hx # Term Pregnancies Ectopic pregnancies Hx # Pregnancies Multiple births Number of Living Children 1 [facility] Surgical History (Updated 01/04/25 @ 00:00 by Background Daemon) History of delivery ?Z98.891 - History of uterine scar from previous surgery (ICD-10) Social History What is your current living situation?: I presently have a place to live Problems where you live: no known problems In the past 12 months, utilities in danger of being shut off: no In past 12 months, lack of transportation kept you from medical appts, meetings, work, or getting things needed for daily living: no In the past 12 mos, have been you worried that your food would run out before you had money to buy more?: never true In the past 12 mos, the food you bought just didn't last and you didn't have money to buy more?: never true Smoking Status: Former smoker How often does anyone, including family, friends and others, physically hurt you : never How often does anyone, including family, friends and others, insult or talk down to you: never How often does anyone, including family, friends and others, threaten you with harm: never How often does anyone, including family, friends and others, scream or curse at you: never Meds Home Medications and Allergies Home Medications ?Medication ?Instructions ?Recorded ?Confirmed ?Type dextroamphetamine-amphetamine 10 10 mg PO QDAY PRN 04/0412/25/24 History mg tablet (Adderall) docosahexaenoic acid 200 mg mg PO 09/08/24 12/11/24 Hi story capsule ( DHA) acetaminophen 500 mg tablet 1,000 mg (2 x 500 mg) PO Q 6H PRN 12/27/24 01/11/25 Rx Pain 30 days #60 tabs docusate sodium 100 mg capsule 100 mg PO DAILY 30 days #30 caps 12/27/24 01/11/25 Rx ibuprofen 600 mg tablet 600 mg PO Q6H PRN Pain 30 da ys #60 12/27/24 01/11/25 Rx tabs modified lanolin 100 % topical 1 applic topical Q1H [place] N #21 grams 12/27/24 Rx cream (Lanolin (HPA)) Allergies Allergy/AdvReac Type Severity Reaction Status Date / Time amoxicillin Allergy Intermediate Rash Verified 12/11/24 08:49 OB - H&P: Exam Physical Exam: Vital signs: Temp Pulse Resp BP Pulse Ox O2 Del Method 97.9 F 71 16 146/96 H 97 Room Air 01/11/25 14:20 01/11/25 14:20 01/11/25 14:20 01/11/25 15:15 01/11/25 14:20 01/11/25 14:20 Narrative: General: Alert and oriented, no acute distress Psych: Appropriate mood and affect Heart: Regular rate and rhythm, no rubs murmurs or gallops Lungs: Clear to posterior auscultation without wheezes, rales or crackles Abdomen: Soft, nondistended, nontender to palpation throughout. No rebound or g uarding. Slight discomfort to palpation in the right upper quadrant but no tenderness/pain. Incision is well approximated, no separation, erythema or drainage. OB - Results Labs Labs: Short CBC 01/11/25 Range/Units 14:55 WBC 7.33 (4.50-11.00) K/uL Hgb 12.7 (12.0-16.0) gm/dL Hct 39.0 (33.0-51.0) % Plt Count 409 (140-440) K/uL BMP 01/11/25 14:55 Sodium 137 Potassium 4.0 Chloride 107 Carbon Dioxide 24 BUN 13 Creatinine 0.8 Glucose 89 Calcium 9.1 Liver Function 01/11/25 Range/Units 14:55 Total Bilirubin 0.5 (0.1-1.5) mg/dL Direct Bilirubin 0.3 (0.0-0.5) mg/dL AST 18 (12-35) U/L ALT 16 (4-35) U/L Alkaline Phosphatase 124 (40-150) U/L Albumin 4.1 (3.3-5.0) g/dL Urine 01/11/25 Range/Units 14:40 Urine Color Yellow (Yellow) Urine Appearance Clear (Clear) Urine pH 5.5 (5.0-8.5) Ur Specific [employer] 1.020 (1.000-1.030) Urine Protein Negative (Negative) Urine Glucose (UA) Negative (Negative) OB - CN: A/P Assessment and Plan (1) Severe pre-eclampsia, : Status: Acute (2) Status post repeat low transverse section: Status: Acute (3) ADHD: Status: Acute (4) Migraine: Status: Acute (5) Tobacco use affecting in second trimester, antepartum: Status: Acute Plan Radha is a 29yo seen on POD17 from repeat C/S and bilateral salpingectomy. She presented to the ED from [facility] clinic due to severe range BPs. is complicated by a prior , history of hemorrhage requiring 2 units packed red blood cells, ADHD, tobacco use disorder, obesity and migraines. On arrival, patient's initial BP was severe at 163/111mmHg. She [facility] a [facility], though I am unable to verify this. She did have another BP check for 55 minutes, at which time her blood pressure without of the severe range. Preeclampsia labs were obtained and were within normal limits - platelets of 409, creatinine 0.8, AST 18, ALT 16. Patient does note a persistent headache over the last several days, despite ibuprofen/Tylenol. Denies vision changes or right upper quadrant pain, has slight discomfort to palpation of the right upper quadrant on exam. I feel her clinical picture is most consistent with preeclampsia with severe features the setting of nonsustained severe range blood pressures (though technically impossible to say if it were sustained or not as no 15 min recheck was performed) and unrelenting headache. - Recommend initiation of magnesium sulfate for seizure prophylaxis - 4 g bolus, followed by 2 grams/hour infusion times 24 hours. - Recommend serial preeclampsia labs and mag levels Q6H while on magnesium. - Plan to treat sustained severe range blood pressures as needed with short- acting antihypertensives. Patient has not required any to present. - Start nifedipine XL 30 mg daily now, where I do think it is highly likely she may need further titration of antihypertensive regimen. - Monitor I/Os - Recommend SCDs for VTE ppx - Routine care and support. - With regard to bleeding that increased on Saturday, I am reassured that this has significantly decreased again. Admission hemoglobin is 12.7. Plan expectant management with close symptom monitoring - no evidence of delayed hemorrhage or endometritis at this time. Given patient is established with Mary Anne, SBAR was provided to precision devices inspector/tester MD Dr. Sung. Their service is comfortable admitting Radha and managing her severe preE. They understand Ob consultation is available if needed.
[2025-01-11] MEDS: MAGNESIUM IV 4 GM/100 ML PIGGYBACK IVPB (15:57)
[2025-01-11] MEDS: ACETAMINOPHEN 500 MG TABLET 1000 MG PO ×2 (16:00→22:41)
[2025-01-11] MEDS: LACTATED RINGERS 1000 ML 1,000 ML 75 ML IV (16:26)
[2025-01-11] MEDS: MAGNESIUM Infusion 40 GM/1,000 ML IV.SOLN IVPB (16:44)
--- NOTE | 2025-01-11 18:11 | PM.GYNHPNOR ---
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 was complicated by hx of section for arrest of descent, ADHD on adderall, and tobacco dependence She had an unremarkable hospital stay after her delivery. Discharged on PPD #2. 5 days ago, reports onset of headache. She attributed this to sleep deprivation; also has history of migraines. Checked her blood pressure at home, found to be 150's/100s. Contacted the [facility] on 01/08, and was directed to contact the [facility]. Decided she would see how the weekend went. Over the weekend, continued to have headache, which became severe on 01/09, and elevated blood pressures. [facility] post- incision check by Dr. Marisa Perkins earlier today, where blood pressure was 148/102. She was directed to go to the emergency department for further evaluation. In the ED, initial blood pressure was 163/111. It was not rechecked for 55 mins, at which time was out of the severe range at 146/96. Pre-eclampsia labs all within normal limits. She was evaluated by the OB implementation engineer, Dr. Melton, who admitted her for pre-eclampsia with severe features. She was started on IV magnesium, and received oral nifedipine XL 30 mg daily. Upon my examination, she continues to endorse mild LEUNG, though improved after acetaminophen 1000 mg. Denies visual changes. Vague RUQ discomfort. Denies edema. She is and pumping, baby girl is here with her. Bleeding has slowed considerable. No concerns about her incision. States she has not been taking her adderall since delivery. Prior to delivery, only took it when she had to work. Review of Systems Status of ROS: Reports: 10 or more systems reviewed and unremarkable except as noted in History and below Meds Home Medications and Allergies Home Medications ?Medication ?Instructions ?Recorded ?Confirmed ?Type dextroamphetamine-amphetamine 10 10 mg PO QDAY PRN 09/08/24 12/25/24 History mg tablet (Adderall) docosahexaenoic acid 200 mg mg PO 09/08/24 12/11/24 History capsule ( DHA) acetaminophen 500 mg tablet 1,000 mg (2 x 500 mg) PO Q6H PRN 12/27/24 01/11/25 Rx Pain 30 days #60 tabs docusate sodium 100 mg capsule 100 mg PO DAILY 30 days #30 caps 12/27/24 01/11/25 Rx ibuprofen 600 mg tablet 600 mg PO Q6H PRN Pain 30 days #60 12/27/24 01/11/25 Rx tabs modified lanolin 100 % topical 1 applic topical Q1H PRN #21 grams 12/27/24 Rx cream (Lanolin (HPA)) Allergies Allergy/AdvReac Type Severity Reaction Status Date / Time amoxicillin Allergy Intermediate Rash Verified 01/11/25 17:08 PFSH Active Problems (Updated 01/11/25 @ 18:30 by Estee Sung MD) Severe pre-eclampsia, (Acute) S/p repeat CS 2 weeks ago. Readmitted for pre-E with severe features - single BP 163/111 followed by non-severe range, persistent LEUNG. Normal labs on admission. Mag started evening 01/11. Nifedipine ER 60 mg daily. ?O14.15 - Severe pre-eclampsia, complicating the puerperium (ICD-10) Pre-eclampsia (Acute) ?O14.90 - Unspecified pre-eclampsia, unspecified trimester (ICD-10) Status post repeat low transverse section (Acute) Repeat CS on 12/25 at 39+1 weeks. Unremarkable initial hospital stay. and pumping. ?Z98.891 - History of uterine scar from previous surgery (ICD-10) History of delivery (Acute) ?Z98.891 - History of uterine scar from previous surgery (ICD-10) ADHD (Acute) Adderall 10 mg daily for work prior to delivery. States has not taken since delivery. ?F90.9 - Attention-deficit hyperactivity disorder, unspecified type (ICD-10) Migraine (Acute) ?G43.909 - Migraine, unspecified, not intractable, without status migrainosus (ICD-10) Unwanted fertility (Acute) ?Z30.09 - Encounter for other general counseling and advice on contraception (ICD-10) 23 weeks gestation of (Acute) ?Z3A.23 - 23 weeks gestation of (ICD-10) Tobacco use affecting in second trimester, antepartum (Acute) ?O99.332 - Smoking (tobacco) complicating , second trimester (ICD-10) History of hemorrhage (Acute) ?Z87.59 - Personal history of other complications of , childbirth and the puerperium (ICD-10) Surgical History (Updated 01/11/25 @ 18:29 by Estee Sung MD) History of delivery ?Z98.891 - History of uterine scar from previous surgery (ICD-10) Social History What is your current living situation?: I presently have a place to live Problems where you live: no known problems In the past 12 months, utilities in danger of being shut off: no In past 12 months, lack of transportation kept you from medical appts, meetings, work, or getting things needed for daily living: no In the past 12 mos, have been you worried that your food would run out before you had money to buy more?: never true In the past 12 mos, the food you bought just didn't last and you didn't have money to buy more?: never true Smoking Status: Former smoker How often does anyone, including family, friends and others, physically hurt you: never How often does anyone, including family, friends and others, insult or talk down to you: never How often does anyone, including family, friends and others, threaten you with harm: never How often does anyone, including family, friends and others, scream or curse at you: never Reproductive Health History : 5 Para: 2 History of multiple gestations: No History of ectopic pregnancies: No 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 Alert, oriented and appropriate. Sitting up in hospital bed. HEENT: EOMI, no conjunctival injection or discharge. MMM. Neck: Supple. CV: RRR, no rubs, murmurs or extra heart sounds. Pulm: CTAB, no wheezes, rales or rhonchi. Abdomen: Soft, non-tender. Fundus not palpated above the pelvic brim. MSK: Moving all extremities. Ext: Warm and well-perfused. No LE edema. Skin: Lower transverse abdominal incision appears clean, dry and intact. Neuro: Patellar reflexes 1+ and symmetric. No ankle clonus. Otherwise grossly normal strength and sensation. No focal deficits. Psych: Normal affect. 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 - Results Labs Labs: Short CBC 01/11/25 Range/Units 14:55 WBC 7.33 (4.50-11.00) K/uL Hgb 12.7 (12.0-16.0) gm/dL Hct 39.0 (33.0-51.0) % Plt Count 409 (140-440) K/uL BMP 01/11/25 14:55 Sodium 137 Potassium 4.0 Chloride 107 Carbon Dioxide 24 BUN 13 Creatinine 0.8 Glucose 89 Calcium 9.1 Liver Function 01/11/25 Range/Units 14:55 Total Bilirubin 0.5 (0.1-1.5) mg/dL Direct Bilirubin 0.3 (0.0-0.5) mg/dL AST 18 (12-35) U/L ALT 16 (4-35) U/L Alkaline Phosphatase 124 (40-150) U/L Albumin 4.1 (3.3-5.0) g/dL Urine 01/11/25 Range/Units 14:40 Urine Color Yellow (Yellow) Urine Appearance Clear (Clear) Urine pH 5.5 (5.0-8.5) Ur Specific [place] 1.020 (1.000-1.030) Urine Protein Negative (Negative) Urine Glucose (UA) Negative (Negative) Assessment and Plan Assessment and plan (1) Severe pre-eclampsia, : Problem comment: S/p repeat CS 2 weeks ago. Readmitted for pre-E with severe features - single BP 163/111 followed by non-severe range, persistent LEUNG. Normal labs on admission. Mag started evening 01/11. Nifedipine ER 60 mg daily. Status: Acute Assessment and Plan: Dr. Melton's recommendations as below. OB will not plan to see patient again unless concerns: - Recommend initiation of magnesium sulfate for seizure prophylaxis - 4 g bolus, followed by 2 grams/hour infusion times 24 hours. - Recommend serial preeclampsia labs and mag levels Q6H while on magnesium. - Plan to treat sustained severe range blood pressures as needed with short-acting antihypertensives. Patient has not required any to present. - Received nifedipine XL 30 mg daily on admission. Additional 30 mg given 1800 for sustained non-severe range pressures. Plan 60 mg daily going forward. Titrate as needed. - Monitor I/Os - Recommend SCDs for VTE ppx - Routine care and support. Anticipate discharge earliest 01/13/25 (2) Status post repeat low transverse section: Problem comment: Repeat CS on 12/25 at 39+1 weeks. Unremarkable initial hospital stay. and pumping. Status: Acute (3) ADHD: Problem comment: Adderall 10 mg daily for work prior to delivery. States has not taken since delivery. Status: Acute
[2025-01-11] MEDS: IBUPROFEN 600 MG TABLET PO (19:41)
[2025-01-11 21:20] LABS: Hematocrit* 39.5 % (33.0-51.0); Hemoglobin* 13.0 gm/dL (12.0-16.0); Mean Corpuscular HGB Conc 33 gm/dL (32-36); Mean Corpuscular Hemoglobin 29 pg (26-34); Mean Corpuscular Volume 87 fL (80-100); Red Blood Count* 4.52 m/uL (4.00-5.20); White Blood Count* 9.93 K/uL (4.50-11.00)
[2025-01-11 21:29] LABS: Slide Review Reflex No
[2025-01-11 21:44] LABS: Alanine Aminotransferase* 18 U/L (4-35); Aspartate Amino Transferase* 25 U/L (12-35); Blood Urea Nitrogen* 12 mg/dL (5-24); Creatinine* 0.7 mg/dL (0.5-1.5); Est. Creatinine Clearance* 109.01; Estimated Glomerular Filt Rate 119 ml/min
[2025-01-12] VITALS (10 sets, daily range): BP systolic 96–123; BP diastolic 53–83; PULSE 63–88; RESP 16–20; TEMP 36.3–36.6; O2SAT 95–99
[2025-01-12] MEDS: IBUPROFEN 600 MG TABLET PO ×3 (02:25→20:12)
[2025-01-12 02:32] LABS: Hematocrit* 37.9 % (33.0-51.0); Hemoglobin* 12.3 gm/dL (12.0-16.0); Mean Corpuscular HGB Conc 33 gm/dL (32-36); Mean Corpuscular Hemoglobin 29 pg (26-34); Mean Corpuscular Volume 88 fL (80-100); Red Blood Count* 4.29 m/uL (4.00-5.20); White Blood Count* 8.36 K/uL (4.50-11.00)
[2025-01-12 02:38] LABS: Slide Review Reflex No
[2025-01-12 02:47] LABS: Alanine Aminotransferase* 16 U/L (4-35); Aspartate Amino Transferase* 20 U/L (12-35); Blood Urea Nitrogen* 12 mg/dL (5-24); Creatinine* 0.6 mg/dL (0.5-1.5); Est. Creatinine Clearance* 127.18; Estimated Glomerular Filt Rate 123 ml/min
--- NOTE | 2025-01-12 03:12 | PC.NURSE ---
Pt was told, at shift change, that she needed a second IV. She was educated on why it needed to be done. She requested to have one put in if medication is needed.
[2025-01-12] MEDS: LACTATED RINGERS 1000 ML 1,000 ML 75 ML IV (04:42)
[2025-01-12 09:02] LABS: Hematocrit* 37.4 % (33.0-51.0); Hemoglobin* 12.1 gm/dL (12.0-16.0); Mean Corpuscular HGB Conc 32 gm/dL (32-36); Mean Corpuscular Hemoglobin 29 pg (26-34); Mean Corpuscular Volume 90 fL (80-100); Red Blood Count* 4.18 m/uL (4.00-5.20); White Blood Count* 8.08 K/uL (4.50-11.00)
[2025-01-12 09:11] LABS: Slide Review Reflex No
[2025-01-12 09:16] LABS: Alanine Aminotransferase* 19 U/L (4-35); Aspartate Amino Transferase* 18 U/L (12-35); Blood Urea Nitrogen* 12 mg/dL (5-24); Creatinine* 0.7 mg/dL (0.5-1.5); Est. Creatinine Clearance* 109.01; Estimated Glomerular Filt Rate 119 ml/min
--- NOTE | 2025-01-12 10:46 | PM.FPPN ---
Progress Note: A&P Assessment and plan (1) Severe pre-eclampsia, : Status: Acute (2) Status post repeat low transverse section: Status: Acute (3) ADHD: Status: Acute (4) Migraine: Status: Acute (5) Tobacco use affecting in second trimester, antepartum: Status: Acute Plan Radha Bocanegra is a 29 year old admitted 01/11/25 for pre-eclampsia. She delivered via repeat section on 12/25/24, her immediate course was uncomplicated. She was evaluated in clinic at a 2 week visit and was found to have elevated blood pressures with a persistent headache. She was advised to present to the emergency department. Upon admission, she was found to have a blood pressure 163/111 with subsequent blood pressures in the 150s/100s. She had initial pre-eclampsia labs that were within normal limits. Preeclampsia - continue magnesium sulfate for seizure prophylaxis for total of 24 hours (end time 01/12/25 at 1557) - Continue serial preeclampsia labs and mag levels Q6H while on magnesium. Will de-escalate preeclampsia labs to Q12H once mag sulfate is discontinued - Plan to treat sustained severe range blood pressures as needed with short-acting antihypertensives. Patient has not required any to present. - Reduced nifedipine XL from 60mg QD to 30mg BID due to orthostatic symptoms with BP in 100s/70s -> may need further reduction to 30mg QD pending BP trend and symptom trend - Schedule tylenol 1000mg TID for headache, ibuprofen available prn - Monitor I/Os - Recommend SCDs for VTE ppx S/p Repeat Section on 12/25/24 - Routine care and support Migraine Noted. Patient continues to have headache despite adequate blood pressure management. I considered extension of magnesium for severe features with persistent headache however current headache does seem to be responsive to tylenol and ibuprofen, which is a clnical improvement from admission; thus, will plan to discontinue magnesium gtt at 24 hours as noted above. Her clinical picture will likely be complicated by history of migraines and poor sleep triggering headaches in the period. She will require careful symptom, vitals, and lab monitoring. ADHD Previously on adderall, not taking since time of delivery Tobacco use disorder Further complicates overall picture. Encourage cessation. Subjective Subjective Date Seen: 01/12/25 Principal diagnosis: pre-eclampsia with severe features Interval history: No acute events overnight. Reviewed RN notes. Patient feeling okay this morning, does feel like she is moving slower and just overall feels bad. She thinks that these symptoms are due to the magnesium. She has noticed lightheadedness and dizziness with standing overnight and into this morning. She has also noticed flushing and nausea with prolonged periods of standing. She continues to have a vice like headache, but it does improve some with tylenol and ibuprofen. She reports that she only got a 2 hours of sleep last night. She reports that her headache could be improved if she were to keep up with taking tylenol and/or ibuprofen on a routine schedule. She denies vision changes, chest pain, SOB/FLORES, orthopnea, abdominal pain, vomiting, changes in urination, and extremity swelling. All systems: reviewed and no additional remarkable complaints except as stated Exam Narrative: Exam Narrative: Patient examined while sitting up in bed. Const: Vital Signs, click to edit/add: Vital Signs - 24 hr 01/11/25 14:20 01/11/25 15:15 01/11/25 16:02 Temperature 97.9 F Pulse Rate 67 Pulse Rate [Pulse Oximeter] 71 Respiratory Rate 16 16 Blood Pressure 144/96 H Blood Pressure [Ri ght Arm] Blood Pressure [Ri ght Upper Arm] 163/111 H 146/96 H Pulse Oximetry 97 95 Oxygen Delivery Nm thod Room Air Room Air 01/11/25 16:16 01/11/25 16:16 01/11/25 16:31 Temperature 98.6 F 98.6 F Pulse Rate Pulse Rate [Pulse Oximeter] 69 69 70 Respiratory Rate 16 16 16 Blood Pressure Blood Pressure [Ri ght Arm] 153/87 H 153/87 H 145/91 H Blood Pressure [Ri ght Upper Arm] Pulse Oximetry 98 98 98 Oxygen Delivery Nm thod Room Air Room Air 01/11/25 16:46 01/11/25 17:01 01/11/25 17:31 Temperature Pulse Rate Pulse Rate [Pulse Oximeter] 70 66 77 Respiratory Rate 16 16 16 Blood Pressure Blood Pressure [Ri ght Arm] 157/101 H 157/92 H 147/95 H Blood Pressure [Ri ght Upper Arm] Pulse Oximetry 98 97 [facility] Room Air 01/11/25 18:05 01/11/25 18:35 01/11/25 20:37 Temperature 97.7 F Pulse Rate Pulse Rate [Pulse Oximeter] 77 97 84 Respiratory Rate 16 16 20 Blood Pressure Blood Pressure [Ri ght Arm] 143/93 H 132/78 118/71 Blood Pressure [Ri ght Upper Arm] Pulse Oximetry 98 98 97 Oxygen Delivery Me thod Room Air Room Air Room Air 01/11/25 22:31 01/12/25 00:37 01/12/25 02:27 Temperature 97.6 F 97.6 F Pulse Rate Pulse Rate [Pulse Oximeter] 80 74 74 Respiratory Rate 18 16 16 Blood Pressure Blood Pressure [Ri ght Arm] 104/62 105/71 96/53 L Blood Pressure [Ri ght Upper Arm] Pulse Oximetry 96 97 98 Oxygen Delivery Me thod Room Air Room Air Room Air 01/12/25 04:35 01/12/25 06:41 01/12/25 08:34 Temperature 97.4 F L Pulse Rate Pulse Rate [Pulse Oximeter] 63 70 68 Respiratory Rate 16 20 16 Blood Pressure Blood Pressure [Ri ght Arm] 107/64 105/69 100/61 Blood Pressure [Ri ght Upper Arm] Pulse Oximetry 95 98 97 Oxygen Delivery Me thod Room Air Room Air Room Air 01/12/25 10:30 Temperature 97.9 F Pulse Rate Pulse Rate [Pulse Oximeter] 79 Respiratory Rate 16 Blood Pressure Blood Pressure [Ri ght Arm] 116/71 Blood Pressure [Ri ght Upper Arm] Pulse Oximetry 99 Oxygen Delivery Me thod Room Air Documenting provider has reviewed patient's vital signs: yes Common normals: no apparent distress Exam limitations: altered mental status General appearance: comfortable Orientation/consciousness: Yes awake HENMT: Common normals: normocephalic, external ears normal and external nose normal Head and scalp: normocephalic Nose: external nose normal External ear: external ears normal Mouth: lip normal Eye: Common normals: conjunctivae normal Conjunctiva: conjunctiva(e) normal Resp: Common normals: normal respiratory effort and clear to auscultation bilaterally Auscultation: clear to auscultation bilaterally Cardio: Common normals: regular rate, regular rhythm, S1 normal heart sound, S2 normal heart sound, no gallops, no clicks, no murmurs and peripheral pulses 2+ throughout Rate: regular rate Rhythm: regular rhythm Heart sounds: S1 normal and S2 normal Peripheral pulses: pulses 2+ throughout GI: Common normals: Normal to inspection, nondistended, normoactive bowel sounds present Extremity: Common normals: no calf tenderness and no pedal edema Neuro: Sensorium/orientation: awake Deep tendon reflexes: Rt Patellar (L4): 3+ and Lt Patellar (L4): 3+
[2025-01-12] MEDS: MAGNESIUM Infusion 40 GM/1,000 ML IV.SOLN IVPB (13:48)
[2025-01-12] MEDS: ACETAMINOPHEN 500 MG TABLET 1000 MG PO (14:58)
[2025-01-12 15:14] LABS: Hematocrit* 38.0 % (33.0-51.0); Hemoglobin* 12.3 gm/dL (12.0-16.0); Mean Corpuscular HGB Conc 32 gm/dL (32-36); Mean Corpuscular Hemoglobin 29 pg (26-34); Mean Corpuscular Volume 89 fL (80-100); Red Blood Count* 4.27 m/uL (4.00-5.20); White Blood Count* 8.40 K/uL (4.50-11.00)
[2025-01-12 15:26] LABS: Blood Urea Nitrogen* 10 mg/dL (5-24); Creatinine* 0.8 mg/dL (0.5-1.5); Est. Creatinine Clearance* 95.38; Estimated Glomerular Filt Rate 101 ml/min
[2025-01-12 15:27] LABS: Alanine Aminotransferase* 17 U/L (4-35); Aspartate Amino Transferase* 18 U/L (12-35)
[2025-01-12 15:34] LABS: Slide Review Reflex No
[2025-01-13] VITALS (12 sets, daily range): BP systolic 113–147; BP diastolic 72–91; PULSE 65–79; RESP 16; TEMP 36.4–36.8; O2SAT 95–99
[2025-01-13] MEDS: IBUPROFEN 600 MG TABLET PO ×2 (04:17→19:36)
[2025-01-13 06:01] LABS: Hematocrit* 35.8 % (33.0-51.0); Hemoglobin* 11.5 gm/dL (12.0-16.0); Immature Granulocytes Abs Auto 0.01 K/uL (0.00-0.30); Immature Granulocytes Pct Auto 0.1 %; Lymphocytes Absolute Auto 2.83 K/uL (0.90-2.90); Mean Corpuscular HGB Conc 32 gm/dL (32-36); Mean Corpuscular Hemoglobin 29 pg (26-34); Mean Corpuscular Volume 90 fL (80-100); RDW Coefficient of Variation % 12.6 % (11.5-15.5); Red Blood Count* 3.98 m/uL (4.00-5.20); White Blood Count* 7.76 K/uL (4.50-11.00)
[2025-01-13 06:09] LABS: Slide Review Reflex No
[2025-01-13 06:20] LABS: Alanine Aminotransferase* 15 U/L (4-35); Aspartate Amino Transferase* 17 U/L (12-35); Creatinine* 0.7 mg/dL (0.5-1.5); Est. Creatinine Clearance* 109.01; Estimated Glomerular Filt Rate 119 ml/min
--- NOTE | 2025-01-13 08:21 | PM.FPPN ---
Progress Note: A&P Assessment and plan (1) Severe pre-eclampsia, : Problem details: Patient received 24 hours of magnesium, off 01/12 at 1600. She is feeling better off magnesium. patient had significant orthostasis overnight, held morning dose of nifedipine, now on 30 mg nifedipine daily. (next dose at 6pm this evening). Will monitor BP and symptoms throughout day. Labs reassuring Status: Acute Assessment and Plan: - may be able to discharge this evening. (2) Status post repeat low transverse section: Problem details: Has no concerns, feeling well. Bleeding appropriate Status: Acute (3) Headache: Problem details: headache +photophobia. Nearly resolved this morning per patient. Will monitor Status: Acute Assessment and Plan: - tylenol PRN Plan - continue preeclampsia assessments and BP checks - monitor headache - may d/c later today if doing well 24 hours off of magnesium. If BP is not well controlled will need to stay another day. Subjective Subjective Time Seen by Provider: 08:21 Date Seen: 01/13/25 Principal diagnosis: preeclampsia with severe features. Interval history: Patient feels headache is better today. She feels her swelling is minimal. She continued to have orthostatic dizziness overnight. Required assistance to bathroom from RN teams. Bleeding has been minimal. She feels her dizziness is a bit better today. All systems: reviewed and no additional remarkable complaints except as stated Constitutional: as per HPI Exam Const: Vital Signs, click to edit/add: Vital Signs - 24 hr 01/12/25 08:34 01/12/25 10:30 01/12/25 12:36 Temperature 97.4 F L 97.9 F 97.5 F L Pulse Rate [Pulse Oximeter] 68 79 78 Respiratory Rate 16 16 18 Blood Pressure [Ri ght Arm] 100/61 116/71 113/67 Pulse Oximetry 97 99 96 Oxygen Delivery Me thod Room Air Room Air Room Air 01/12/25 14:39 01/12/25 16:35 01/12/25 20:12 Temperature 97.7 F 97.9 F 97.6 F Pulse Rate [Pulse Oximeter] 75 71 88 Respiratory Rate 16 16 16 Blood Pressure [Ri ght Arm] 123/83 119/74 104/66 Pulse Oximetry 98 97 97 Oxygen Delivery Me thod Room Air Room Air Room Air 01/13/25 00:00 01/13/25 04:00 01/13/25 08:06 Temperature 98.2 F 97.8 F 97.9 F Pulse Rate [Pulse Oximeter] 77 73 66 Respiratory Rate 16 16 16 Blood Pressure [Ri ght Arm] 123/77 131/81 117/79 Pulse Oximetry 96 96 97 Oxygen Delivery Me thod Room Air Room Air Room Air Documenting provider has reviewed patient's vital signs: yes Common normals: no apparent distress and oriented x3 HENMT: Common normals: normocephalic and head/scalp atraumatic Head and scalp: normocephalic and atraumatic Eye: General eye: normal appearance of both eyes Neck & C-Spine: Common normals: full ROM Resp: Common normals: normal respiratory effort and clear to auscultation bilaterally Auscultation: clear to auscultation bilaterally Cardio: Common normals: S1 normal heart sound and S2 normal heart sound Heart sounds: S1 normal and S2 normal; no murmurs GI: Common normals: soft to palpation and non-tender Palpation: soft : Uterus: U/3 and firm Uterus palpation: uterus nontender Extremity: Common normals: no calf tenderness and no pedal edema Neuro: Common normals: oriented x3 Skin: Common normals: no rashes or lesions noted General skin exam: no rashes or lesions noted
[2025-01-14 04:03] VITALS: BP 110/71; PULSE 65; RESP 16
--- NOTE | 2025-01-14 08:12 | PM.DS1 ---
DS: Providers Provider Date Seen: 01/14/25 Date of admission: 01/11/25 15:44 Primary care physician: Raquel Drake MD Admitting Clinician: Elaine Melton MD Attending Physician on discharge: Estee Sung MD DS: Diagnosis Discharge Diagnosis (1) Severe pre-eclampsia, : Status: Acute Problem details: Patient received 24 hours of magnesium, off 01/12 at 1600. She is feeling better off magnesium. patient had significant orthostasis overnight, held morning dose of nifedipine, now on 30 mg nifedipine daily. (next dose at 6pm this evening). Will monitor BP and symptoms throughout day. Labs reassuring (2) Status post repeat low transverse section: Status: Acute Problem details: Has no concerns, feeling well. Bleeding appropriate DS: Summary Status at Discharge Functional status at discharge: independent ambulation Overall status at discharge: patient is progressing back to baseline Time Spent with Patient Time attestation: Total time spent providing and/or coordinating discharge services: Time spent: Less than 30 minutes Quality: Stroke Reason for not prescribing antithrombotic at DC: Medical contraindication Exam Const: Vital Signs, click to edit/add: Vital Signs - 24 hr 01/13/25 12:04 01/13/25 16:00 01/13/25 16:17 Temperature 98.3 F 97.5 F L Pulse Rate [Pulse Oximeter] 65 72 68 Respiratory Rate 16 16 Blood Pressure [Ri ght Arm] 129/79 142/87 H 141/91 H Pulse Oximetry 96 99 96 Oxygen Delivery Me thod Room Air Room Air 01/13/25 17:01 01/13/25 17:32 01/13/25 18:02 Temperature Pulse Rate [Pulse Oximeter] 68 68 72 Respiratory Rate 16 16 16 Blood Pressure [Ri ght Arm] 143/89 H 133/87 147/88 H Pulse Oximetry 97 97 96 Oxygen Delivery Me thod Room Air Room Air Room Air 01/13/25 19:07 01/13/25 20:02 01/13/25 23:59 Temperature 97.8 F 97.7 F Pulse Rate [Pulse Oximeter] 79 77 65 Respiratory Rate 16 16 16 Blood Pressure [Ri ght Arm] 133/86 126/80 113/72 Pulse Oximetry 99 98 95 Oxygen Delivery Me thod Room Air Room Air 01/14/25 04:03 Temperature Pulse Rate [Pulse Oximeter] 65 Respiratory Rate 16 Blood Pressure [Ri ght Arm] 110/71 Pulse Oximetry Oxygen Delivery Me thod Room Air Common normals: no apparent distress General appearance: cooperative and comfortable Resp: Common normals: normal respiratory effort and clear to auscultation bilaterally Auscultation: clear to auscultation bilaterally Cardio: Common normals: regular rate and regular rhythm Rate: regular rate Rhythm: regular rhythm Extremity: Common normals: no pedal edema DS: Data Data Completed and Pending Completed studies during hospitalization: Procedures Extraction of Products of Conception, Low, Open Approach (12/25/24) Release Peritoneum, Open Approach (12/25/24) Resection of Bilateral Fallopian Tubes, Open Approach (12/25/24) Discharge Plan Discharge Disposition: Home, Self-Care Date of Admission: 01/11/25 15:44 Attending Provider on Discharge: Raquel Drake Primary Care Provider: Raquel Drake Condition: Improved Anticipated Discharge Date/Time: 01/14/25 08:14 Discharge Medications: New nifedipine 30 mg Tablet Extended Release 30 mg PO Q24H Qty: 30 0RF Continued dextroamphetamine-amphetamine [Adderall] 10 mg tablet 10 mg PO QDAY PRN DHA 200 mg capsule 200 mg PO DAILY acetaminophen 500 mg Tablet 1,000 mg PO Q6H PRN (Reason: Pain) 30 Days Qty: 60 0RF docusate sodium 100 mg Capsule 100 mg PO DAILY 30 Days Qty: 30 0RF ibuprofen 600 mg Tablet 600 mg PO Q6H PRN (Reason: Pain) 30 Days Qty: 60 0RF Lanolin (HPA) 100 % Cream 1 applic topical Q1H PRNQty: 21 0RF Discharge Orders: Discharge Order (Routine); Ordered 01/14/25 Ordered By: Raquel Drake Consulting provider completed their portion of the discharge: Yes Patient Education: OB /Breast Feeding Activity Level: No Restrictions Discharge Diet: Regular Follow Up Appointments: Raquel Drake MD [Primary Care Provider, Family Practice] Referral Note: Saturday01/15/25 at 8:25 AM Forms: [employer] Info Instructions
[2025-01-14 09:05] VITALS: BP 133/87; PULSE 55; RESP 16; TEMP 36.6; O2SAT 98
== END 2025-01-14 09:43 | disposition home or self-care (01) | DRG 776 ==
LOC: ED 15:32 → OB 16:07
PROVIDERS: Family Medicine; Student in an Organized Health Care Education/Training Program; Admitting Provider Obstetrics & Gynecology; Emergency Provider Emergency Medicine; PCP Family Medicine; Visit Provider Family Medicine
DX: O14.15 Severe pre-eclampsia, complicating the puerperium (principal); F90.9 Attention-deficit hyperactivity disorder, unspecified type; G43.909 Migraine, unspecified, not intractable, without status migrainosus; O99.335 Smoking (tobacco) complicating the puerperium; F17.210 Nicotine dependence, cigarettes, uncomplicated
CPT/HCPCS: 36415; 80048; 80076; 81001; 82565; 83735; 84450; 84460; 84520; 85025; 85027; 87086; 99283; 99285; A9270; J3475; J7120